=== PATIENT | female | born 1965 | race Two or more races ===

== ENCOUNTER 2017-01-31 13:59 | Emergency (ER) | payer OTHER ==
[2017-01-31] MEDS ORDERED: OXYCODONE/APAP 5/325MG COMBO TABLET PO ONE (14:56)
[2017-01-31] MEDS ORDERED: OXYCODONE/APAP 5/325MG COMBO TABLET ONE (14:57)
[2017-01-31 14:58] VITALS: TEMP 98.9
--- NOTE | 2017-01-31 15:02 | PDOC ---
History of Present Illness - General Chief Complaint: Injury Stated Complaint: FALL Time Seen by Provider: 01/31/17 14:46 History Source: Patient Exam Limitations: No Limitations - History of Present Illness Initial Comments: 01/31/17 15:38 Chief complaint: Slip and fall on slippery floor and [employer] falling onto her left side complaining of left hip and pelvis pain and right knee pain and slight pain to her right wrist and palm History of present illness: Patient is a 51-year-old female with a history of hypertension here today after slipping on slippery floor that was oily and [employer] falling onto her left side patient was unable to get up patient ambulance was called patient reports having left hip and pelvic pain and right anterior posterior knee pain Currently an 8 out of 10 aching in nature. Patient also reports slight right palm and wrist pain that is currently a 3 out of 10. Patient denies head injury. Patient denies any numbness in her arms or legs or back. 01/31/17 15:39 Occurred: reports: just prior to arrival Severity: reports: severe Pain Location: reports: lower extremity (rt. anterior/posterior knee, rt. wrist hand ), pelvis (left hip/pelvis ) Method of Injury: Yes: fall Modifying Factors: improves with: None Loss of Consciousness: no loss of consciousness Associated Symptoms (Fall): trouble walking, other (denies hitting her head ) Past History - Past Medical History Allergies/Adverse Reactions: Allergies Allergy/AdvReac Type Severity Reaction Status Date / Time No Known Drug Allergies Allergy Verified 01/31/17 14:47 Home Medications: Ambulatory Orders Enalapril Maleate [Vasotec] 20 mg PO DAILY 01/31/17 Naproxen [Naprosyn -] 500 mg PO BID PRN #14 tablet 01/31/17 Anemia: No Asthma: No Cancer: No Cardiac Disorders: No CVA: No COPD: No CHF: No Dementia: No Diabetes: No GI Disorders: No Disorders: No HTN: Yes Hypercholesterolemia: No Liver Disease: No Seizures: No Thyroid Disease: No - Surgical History Abdominal Surgery: No Appendectomy: No Cardiac Surgery: No Cholecystectomy: Yes Lung Surgery: No Neurologic Surgery: No Orthopedic Surgery: No - Immunization History Immunization Up to Date: Yes - Psycho/Social/Smoking Cessation Hx Anxiety: No Suicidal Ideation: No Smoking History: Never smoked Have you smoked in the past 12 months: No Number of Cigarettes Smoked Daily: 0 Cigars Per Day: 0 Information on smoking cessation initiated: No Hx Alcohol Use: No Drug/Substance Use Hx: No Substance Use Type: None Hx Substance Use Treatment: No Review of Systems - Review of Systems Able to Perform ROS?: Yes Constitutional: No: Symptoms Reported HEENTM: No: Symptoms Reported Respiratory: No: Symptoms reported Cardiac (ROS): No: Symptoms Reported ABD/GI: No: Symptoms Reported : No: Symptoms Reported Musculoskeletal: Yes: Joint Pain (left hip/pelvis severe rt. anterior/ posterior knee severe , rt. wrist/hand minimal ) Integumentary: No: Symptoms Reported Neurological: No: Symptoms reported *Physical Exam - Vital Signs Last Vital Signs Temp Pulse Resp BP Pulse Ox 98.9 F 84 17 130/70 98 01/31/17 14:49 01/31/17 14:49 01/31/17 14:49 01/31/17 14:49 01/31/17 14:49 - Physical Exam General Appearance: Yes: Appropriately Dressed Neck: negative: Rigidity, Tender lateral, Tender midline Respiratory/Chest: positive: Lungs Clear, Normal Breath Sounds. negative: Chest Tender, Respiratory Distress Cardiovascular: positive: Regular Rhythm, Regular Rate, S1, S2 Vascular Pulses: Dorsalis-Pedis (R): 4+, Doralis-Pedis (L): 4+ Gastrointestinal/Abdominal: positive: Normal Bowel Sounds, Tender (diffuse ), Soft, Tenderness (du). negative: Organomegaly, Distended, Guarding, Rebound, Spleenomegaly Rectal Exam: negative: heme negative stool Musculoskeletal: positive: Decreased Range of Motion (left hip). negative: Normal Inspection, CVA Tenderness, CVA Tenderness (R), Vertebral Tenderness Extremity: positive: Normal Capillary Refill, Normal Inspection (left hip/ pelvis ), Normal Range of Motion, Tender (rt. anterior/posterior knee, minimal rt. wrist/palm ), Other (normal inspection rt. hand, wrist and digits) Integumentary: positive: Normal Color, Other (rt. lateral thigh raised area lateral slight tender approx 4 cm x 5 cm) Neurologic: positive: Fully Oriented, Alert, Normal Response, Respond to painful stimul, Responsive. negative: Numbness, Sensory Deficit (legs, rt. arm , hand and wrist ) ED Treatment Course - RADIOLOGY Radiology Studies Ordered: Category Date Time Status HIP & PELVIS-LEFT [RAD] Stat Radiology 01/31/17 14:56 Ordered KNEE 2 POS-RIGHT [RAD] Stat Radiology 01/31/17 14:56 Ordered Medical Decision Making - Medical Decision Making 01/31/17 15:40 Patient is a 51-year-old female with a history of hypertension here today after slipping on slippery floor that was oily and [employer] falling onto her left side patient was unable to get up patient ambulance was called patient reports having left hip and pelvic pain and right anterior posterior knee pain Currently an 8 out of 10 aching in nature. Patient also reports slight right palm and wrist pain that is currently a 3 out of 10. Patient denies head injury. Patient denies any numbness in her arms or legs or back. Slip and fall rule out fracture of left hip/pelvis r/o bony injury to right knee minimal rt. wrist/palm pain not suspicious for fracture rt. knee pain rt. thigh contusion left hip pain PLAN: percocet 5mg/325mg po now xray left hip/pelvis Problems no sign of fracture or subluxation. no sign of fracture or subluxation h/o c section xray right knee acute pathology if symptoms persist further imaging in orthopedic consult review of help per Dr. Martinez 01/31/17 16:56 pt feeling reports generalized abdominal discomfort and feels slightly nauseous and lightheaded presently after taking Percocet will give patient Zofran 4 mg sublingual now and Maalox 30 ml and reassess. has not eaten since this morning 01/31/17 17:35 feeling much better ate, no abdominal pain presently pt is able to ambualate will discharge to home Naprosyn 500 mg bid prn pain # 14 tab 01/31/17 19:00 01/31/17 19:38 02/02/17 19:45 *DC/Admit/Observation/Transfer Diagnosis at time of Disposition: Hip pain, left, Knee pain, right Fall Qualifiers: Encounter type: initial encounter Qualified Code(s): W19.XXXA - Unspecified fall, initial encounter Contusion of thigh, right Qualifiers: Encounter type: initial encounter Qualified Code(s): S70.11XA - Contusion of right thigh, initial encounter - Discharge Dispostion Disposition: HOME Condition at time of disposition: Stable - Prescriptions Prescriptions: Naproxen [Naprosyn -] 500 mg PO BID PRN #14 tablet PRN Reason: Pain - Referrals Referrals: Alejandro Lang MD [Staff Physician] - - Patient Instructions Additional Instructions: Up with orthopedist as soon as possible for further evaluation Take acetaminophen as needed as to by inventory transcriber for pain until you get her prescription you may apply ice to left hip and right knee and right thigh every 2 hours for 15-20 minutes each time today and tomorrow return to Emergency room if symptoms worsen or any new symptoms develop Any strenuous activities or exercise Voice understanding of discharge instructions and all questions were answered - Post Discharge Activity Work/School Note: Back to Work
[2017-01-31] MEDS ORDERED: ONDANSETRON *ODT* 4 MG TABLET SL ONE (16:52)
[2017-01-31] MEDS ORDERED: MAG HYDROX/AL HYDROX/SIMETH 355 ML ORAL.SUSP PO ONE (16:53)
[2017-01-31] MEDS ORDERED: MAG HYDROX/AL HYDROX/SIMETH 30 ML UNIT-DOSE CUP ONE (17:04)
[2017-01-31] MEDS ORDERED: ONDANSETRON *ODT* 4 MG TABLET ONE (17:04)
[2017-01-31 20:07] VITALS: BP 122/65; PULSE 78
== END 2017-01-31 20:07 | disposition home or self-care (01) ==
LOC: JER 13:59
DX: S70.12XA Contusion of left thigh, initial encounter (principal); I10 Essential (primary) hypertension; W01.0XXA Fall on same level from slipping, tripping and stumbling without subsequent striking against object, initial encounter; Y93.89 Activity, other specified; Y92.512 Supermarket, store or market as the place of occurrence of the external cause; Y99.0 Civilian activity done for income or pay
CPT/HCPCS: 73523-TC; 73560-TC-RT; 99283-25

== ENCOUNTER 2017-02-15 22:38 | Emergency (ER) | payer OTHER ==
[2017-02-15 22:56] VITALS: BP 127/71; PULSE 99; TEMP 98.2; BMI 19.1
--- NOTE | 2017-02-16 00:37 | PDOC ---
History of Present Illness - History of Present Illness Initial Comments: 02/16/17 00:48 The patient is a 52 year old female, with a significant past medical history of hypertension, who presents to the emergency department with abdominal pain, nausea, and vomiting since eating soup at 6pm last night. The patient localizes her pain to the upper abdominal quadrants. The patient states she felt like her blood pressure dropped. She states she became weak and reports nausea and a couple of episodes of vomiting this evening. She denies chest pain, shortness of breath, headache and dizziness. She denies fever, chills, diarrhea and constipation. She denies dysuria, frequency, urgency and hematuria. Allergies: NKDA Past surgical history: cholecystectomy <Elena Oquendo - Last Filed: 02/16/17 00:47> - General History Source: Patient <Paul Coulter - Last Filed: 02/16/17 02:02> - General Chief Complaint: Pain, Acute Stated Complaint: PAIN, ACUTE Time Seen by Provider: 02/16/17 00:34 Past History <Elena Oquendo - Last Filed: 02/16/17 00:47> - Past Medical History Anemia: No Asthma: No Cancer: No Cardiac Disorders: No CVA: No COPD: No CHF: No Dementia: No Diabetes: No GI Disorders: No Disorders: No HTN: Yes Hypercholesterolemia: No Liver Disease: No Seizures: No Thyroid Disease: No - Surgical History Abdominal Surgery: No Appendectomy: No Cardiac Surgery: No Cholecystectomy: Yes Lung Surgery: No Neurologic Surgery: No Orthopedic Surgery: No - Immunization History Immunization Up to Date: Yes - Psycho/Social/Smoking Cessation Hx Anxiety: No Suicidal Ideation: No Smoking History: Never smoked Have you smoked in the past 12 months: No Number of Cigarettes Smoked Daily: 0 Cigars Per Day: 0 Hx Alcohol Use: No Drug/Substance Use Hx: No Substance Use Type: None Hx Substance Use Treatment: No <Paul Coulter - Last Filed: 02/16/17 02:02> - Past Medical History Allergies/Adverse Reactions: Allergies Allergy/AdvReac Type Severity Reaction Status Date / Time No Known Drug Allergies Allergy Verified 02/15/17 22:52 Home Medications: Ambulatory Orders Enalapril Maleate [Vasotec] 20 mg PO DAILY 01/31/17 Loratadine [Claritin] 10 mg PO DAILY #30 tablet 02/16/17 Ondansetron [Zofran *Odt*] 4 mg SL TID #30 od.tablet 02/16/17 Review of Systems - Review of Systems Able to Perform ROS?: Yes Comments:: 02/16/17 00:49 CONSTITUTIONAL: Absent: fever, chills, diaphoresis, generalized weakness, malaise, loss of appetite HEENT: Absent: rhinorrhea, nasal congestion, throat pain, throat swelling, difficulty swallowing, mouth swelling, ear pain, eye pain, visual Changes CARDIOVASCULAR: Absent: chest pain, syncope, palpitations, irregular heart rate, lightheadedness , peripheral edema RESPIRATORY: Absent: cough, shortness of breath, dyspnea with exertion, orthopnea, wheezing, stridor, hemoptysis GASTROINTESTINAL: (+) nausea, vomiting, abdominal pain, Absent: abdominal distension, diarrhea, constipation, melena, hematochezia GENITOURINARY: Absent: dysuria, frequency, urgency, hesitancy, hematuria, flank pain, genital pain MUSCULOSKELETAL: Absent: myalgia, arthralgia, joint swelling SKIN: Absent: rash, itching, pallor HEMATOLOGIC/IMMUNOLOGIC: Absent: easy bleeding, easy bruising, lymphadenopathy, frequent infections ENDOCRINE: Absent: unexplained weight gain, unexplained weight loss, heat intolerance, cold intolerance NEUROLOGIC: Absent: headache, focal weakness or paresthesias, dizziness, unsteady gait, seizure, mental status changes, bladder or bowel incontinence PSYCHIATRIC: Absent: anxiety, depression, suicidal or homicidal ideation, hallucinations. <Elena Oquendo - Last Filed: 02/16/17 00:47> *Physical Exam - Vital Signs Last Vital Signs Temp Pulse Resp BP Pulse Ox 98.2 F 99 H 20 127/71 97 02/15/17 22:52 02/15/17 22:52 02/15/17 22:52 02/15/17 22:52 02/15/17 22:52 - Physical Exam Comments: 02/16/17 00:50 GENERAL: (+) Patient appears to be in moderate distress. The patient appears pale. Awake and alert. HEENT: (+) slightly dry mucous membranes. Normocephalic, atraumatic. PERRLA, EOMI. No conjunctival pallor. Sclera are non-icteric. Oropharynx is clear. NECK: Supple. Full ROM. No JVD. Carotid pulses 2+ and symmetric, without bruits. No thyromegaly. No lymphadenopathy. CARDIOVASCULAR: (+) slightly tachycardic rate and normal rhythm. No murmurs, rubs, or gallops. Distal pulses are 2+ and symmetric. PULMONARY: No evidence of respiratory distress. Lungs clear to auscultation bilaterally. No wheezing, rales or rhonchi. ABDOMINAL: (+) tenderness to palpation at the epigastric region. No rebound or guarding. Not rigid. Soft. Non-distended. No organomegaly. Normoactive bowel sounds. MUSCULOSKELETAL Normal range of motion at all joints. No bony deformities or tenderness. No CVA tenderness. EXTREMITIES: No cyanosis. No clubbing. No edema. No calf tenderness. SKIN: (+) pale appearing. Warm and dry. Normal capillary refill. No rashes. No jaundice. NEUROLOGICAL: Alert, awake, appropriate. Cranial nerves 2-12 intact. Normoreflexic in the upper and lower extremities. Normal speech. Toes are down-going bilaterally. Gait is normal without ataxia. PSYCHIATRIC: Cooperative. Good eye contact. Appropriate mood and affect. <Elena Oquendo - Last Filed: 02/16/17 00:47> - Vital Signs Last Vital Signs Temp Pulse Resp BP Pulse Ox 98.2 F 99 H 20 127/71 97 02/15/17 22:52 02/15/17 22:52 02/15/17 22:52 02/15/17 22:52 02/15/17 22:52 <Paul Coulter - Last Filed: 02/16/17 02:02> ED Treatment Course - LABORATORY CBC & Chemistry Diagram: 02/16/17 00:53 02/16/17 00:53 <Paul Cuolter - Last Filed: 02/16/17 02:02> Medical Decision Making - Medical Decision Making 02/16/17 02:01 Dr. Coulter: The scribe's documentation has been prepared under my direction and personally reviewed by me in its entirery. I confirm that the note above accurately reflects all work, treatment, procedures, and medical decision making performed by me. Pt tolerated po fluids after IVf and IV Zofran without vomiting. Pt will be discharged. <Paul Coulter - Last Filed: 02/16/17 02:02> *DC/Admit/Observation/Transfer - Attestations Scribe Attestion: 02/16/17 00:52 Documentation prepared by Elena Oquendo, acting as medical nurse for Paul Coulter MD <Elena Oquendo - Last Filed: 02/16/17 00:47> - Discharge Dispostion Admit: No <Paul Coulter - Last Filed: 02/16/17 02:02> Diagnosis at time of Disposition: Vomiting Qualifiers: Vomiting Intractability: non-intractable Nausea presence: unspecified Abdominal pain Qualifiers: Abdominal location: epigastric Qualified Code(s): R10.13 - Epigastric pain - Discharge Dispostion Disposition: HOME Condition at time of disposition: Stable - Prescriptions Prescriptions: Loratadine [Claritin] 10 mg PO DAILY #30 tablet Ondansetron [Zofran *Odt*] 4 mg SL TID #30 od.tablet - Patient Instructions Printed Discharge Instructions: DI for Abdominal Pain-Adult, DI for Vomiting - - Adult
[2017-02-16] MEDS ORDERED: FAMOTIDINE 20 MG/50 ML IVPB 20 MG in PREMIX 50 IVPB ONE (00:38)
[2017-02-16] MEDS ORDERED: ONDANSETRON 4 MG/2 ML VIAL IVPUSH STA (00:38)
[2017-02-16] MEDS ORDERED: SODIUM CHLORIDE 1,000 ML IV STA (00:38)
[2017-02-16] MEDS ORDERED: FAMOTIDINE 20 MG/50 ML IVPB 50 ML IVPB ONE (00:56)
[2017-02-16] MEDS ORDERED: ONDANSETRON 4 MG/2 ML VIAL ONE (00:56)
[2017-02-16 01:08] LABS: BASOPHIL 0.5 % (0-2.0); EOSINOPHIL 4.6 % (0-4.5); MCH 30.6 pg (25.7-33.7); MCHC 34.2 g/dl (32.0-36.0); MEAN CELL VOLUME 89.5 fl (80-96); MEAN PLT VOLUME 9.5 fl (7.5-11.1); PLATELET COUNT 286 K/MM3 (134-434); RDW 12.8 % (11.6-15.6); WHITE BLOOD COUNT 9.5 K/mm3 (4.0-10.0)
[2017-02-16 01:19] LABS: INR 1.04 (0.82-1.09); PROTHROMBIN TIME (PATIENT) 11.4 SEC (9.98-11.88)
[2017-02-16 01:35] LABS: ALBUMIN 4.1 g/dl (3.4-5.0); AMYLASE 72 U/L (25-115); ANION GAP 12 (8-16); BILIRUBIN,TOTAL 0.8 mg/dL (0.2-1.0); CALCIUM 9.4 mg/dL (8.5-10.1); CO2 27 mmol/L (21-32); CREATININE 0.8 mg/dL (0.55-1.02); GLUCOSE,RANDOM 98 mg/dL (74-106); SGOT/AST 148 U/L (15-37); SGPT/ALT 72 U/L (12-78); TOT PROT 7.8 g/dl (6.4-8.2)
[2017-02-16 01:36] LABS: ALK PHOS 155 U/L (45-117); TROPONIN I < 0.02 ng/ml (0.00-0.05)
[2017-02-16] MEDS ORDERED: LORATADINE 10 MG TABLET PO ONE (01:57)
[2017-02-16] MEDS ORDERED: LORATADINE 10 MG TABLET ONE (02:01)
--- NOTE | 2017-02-16 17:33 | EKG ---
Test Reason : Blood Pressure : / mmHG Vent. Rate : 082 BPM Atrial Rate : 082 BPM P-R Int : 160 ms QRS Dur : 094 ms QT Int : 364 ms P-R-T Axes : 019 078 049 degrees QTc Int : 425 ms NORMAL SINUS RHYTHM INCOMPLETE RIGHT BUNDLE BRANCH BLOCK NONSPECIFIC T WAVE ABNORMALITY ABNORMAL ECG WHEN COMPARED WITH ECG OF 28-MAY-2016 12:04, NO SIGNIFICANT CHANGE WAS FOUND Confirmed by JUNIOR NEGRO MD ([id number]) on 02/16/2017 5:33:02 PM Referred By: Confirmed By:JUNIOR NEGRO MD
== END 2017-02-16 02:09 | disposition home or self-care (01) ==
LOC: JER 22:38
PROC: 3E033GC Introduction of Other Therapeutic Substance into Peripheral Vein, Percutaneous Approach (ICD-10-PCS; principal; 2017-02-15)
DX: R10.13 Epigastric pain (principal); I10 Essential (primary) hypertension
CPT/HCPCS: 36415; 80053; 82150; 82550; 83690; 83735; 84484; 85025; 85610; 93005; 93010; 96365; 96375; 99284-25

== ENCOUNTER 2017-07-30 12:22 | Emergency (ER) | payer OTHER ==
[2017-07-30 12:38] VITALS: BP 126/75; PULSE 67; TEMP 97.6; BMI 20.7
--- NOTE | 2017-07-30 12:53 | PDOC ---
History of Present Illness - General Chief Complaint: Lightheaded Stated Complaint: HEADACHES Time Seen by Provider: 07/30/17 12:52 History Source: Patient Exam Limitations: Language Barrier (Arabic only) - History of Present Illness Initial Comments: 07/30/17 12:53 Patient is a 52 year old Arabic speaking female with no PMH and a recent back surgery for a herniated disk who developed BERGERON, chills, dizziness and nausea 20 minutes after taking a Percocet this morning. Patient denies fever, shortness of breath, chest pain, itching, and rash. Past History - Past Medical History Allergies/Adverse Reactions: Allergies Allergy/AdvReac Type Severity Reaction Status Date / Time No Known Drug Allergies Allergy Verified 07/30/17 12:33 Home Medications: Ambulatory Orders Enalapril Maleate [Vasotec] 20 mg PO DAILY 01/31/17 Loratadine [Claritin] 10 mg PO DAILY #30 tablet 02/16/17 Ondansetron [Zofran *Odt*] 4 mg SL TID #30 od.tablet 02/16/17 Anemia: No Asthma: No Cancer: No Cardiac Disorders: No CVA: No COPD: No CHF: No Dementia: No Diabetes: No GI Disorders: No Disorders: No HTN: Yes Hypercholesterolemia: No Liver Disease: No Seizures: No Thyroid Disease: No - Surgical History Abdominal Surgery: No Appendectomy: No Cardiac Surgery: No Cholecystectomy: Yes Lung Surgery: No Neurologic Surgery: No Orthopedic Surgery: No - Immunization History Immunization Up to Date: Yes - Psycho/Social/Smoking Cessation Hx Anxiety: No Suicidal Ideation: No Smoking History: Never smoked Have you smoked in the past 12 months: No Number of Cigarettes Smoked Daily: 0 Cigars Per Day: 0 Hx Alcohol Use: No Drug/Substance Use Hx: No Substance Use Type: None Hx Substance Use Treatment: No *Physical Exam - Vital Signs Last Vital Signs Temp Pulse Resp BP Pulse Ox 97.6 F 67 19 126/75 100 07/30/17 12:33 07/30/17 12:33 07/30/17 12:33 07/30/17 12:33 07/30/17 12:33 Medical Decision Making - Medical Decision Making 07/30/17 12:53 52 yo female s/p sgx with epidural with bergeron, chills, dizziness and nausea after taking percocet Plan Basic labs and UA monitor and reassess 07/30/17 14:12 07/30/17 14:14 07/30/17 14:54 Patient missing from room *DC/Admit/Observation/Transfer Diagnosis at time of Disposition: Dizziness - Discharge Dispostion Disposition: ELOPED Condition at time of disposition: Unchanged/Unknown - Referrals Referrals: Andres Galeas [Primary Care Provider] - - Patient Instructions Printed Discharge Instructions: DI for Dizziness-Nonvertigo
--- NOTE | 2017-07-30 13:32 | PDOC ---
Attending Attestation - Resident Resident Name: Loyd Monahan - ED Attending Attestation I have performed the following: I have examined & evaluated the patient, The case was reviewed & discussed with the resident, I agree w/resident's findings & plan, Exceptions are as noted - HPI HPI: 07/30/17 14:04 52yo female with nausea, dizziness, shaver after taking percocet for the first time. currently only mild dizziness - ambulates with a steady gait. - Physicial Exam PE: 07/30/17 14:04 Gen: aaox3, nad heart: +s1s2 reg Lungs: cta b/l abd: soft, nt/nd +bs ext: no c/c/e back: no midline ttp, stepoffs deformities. no redness, no swelling, no warmth, injection site healing. no drainage neuro: cn ii-xii grossly intact, sensation intact, no focal deficits, muscle strength 5/5 - Medical Decision Making 07/30/17 14:05 52yo female with adverse drug reaction after taking percocet for low back pain -non toxic appearance. pt without signs symptoms or epidural abscess. no signs of caude equina -recently told calcium level was high. will repeat labs, check ua. -discussed plan with the patient who agrees with the above. 07/30/17 14:54 went to re-eval the patient. Pt could not be found in the ED. 07/30/17 14:54 pt eloped from the ED. had a steady gait. was nontoxic in appearance. Discharge Disposition - Diagnosis Dizziness - Discharge Dispostion Disposition: ELOPED Condition at time of disposition: Unchanged/Unknown Last Admission D/C Date: 09/04/02
== END 2017-07-30 15:04 | disposition home or self-care (01) ==
LOC: JER 12:22
DX: R42 Dizziness and giddiness (principal)
CPT/HCPCS: 99282-25

== ENCOUNTER 2017-12-17 13:42 | Emergency (ER) | payer OTHER ==
[2017-12-17 14:04] VITALS: BP 114/68; PULSE 87; TEMP 98.3; BMI 20.7
--- NOTE | 2017-12-17 14:33 | PDOC ---
History of Present Illness - General Chief Complaint: Cold Symptoms Stated Complaint: THROAT PAIN Time Seen by Provider: 12/17/17 14:31 History Source: Patient - History of Present Illness Associated Symptoms: reports: headache, muscle aches. denies: chest pain/ soreness, cough, earache, facial pain, fever/chills, nasal drainage, shortness of breath, sore throat, wheezing Past History - Past Medical History Allergies/Adverse Reactions: Allergies Allergy/AdvReac Type Severity Reaction Status Date / Time No Known Drug Allergies Allergy Verified 12/17/17 14:04 Home Medications: Ambulatory Orders NK [No Known Home Medication] 12/17/17 Anemia: No Asthma: No Cancer: No Cardiac Disorders: No CVA: No COPD: No CHF: No Dementia: No Diabetes: No GI Disorders: No Disorders: No HTN: Yes Hypercholesterolemia: No Liver Disease: No Seizures: No Thyroid Disease: No - Surgical History Abdominal Surgery: No Appendectomy: No Cardiac Surgery: No Cholecystectomy: Yes Lung Surgery: No Neurologic Surgery: No Orthopedic Surgery: No - Immunization History Immunization Up to Date: Yes - Suicide/Smoking/Psychosocial Hx Smoking History: Never smoked Have you smoked in the past 12 months: No Number of Cigarettes Smoked Daily: 0 Cigars Per Day: 0 Information on smoking cessation initiated: No Hx Alcohol Use: No Drug/Substance Use Hx: No Substance Use Type: None Hx Substance Use Treatment: No Review of Systems - Review of Systems Constitutional: No: Fever HEENTM: No: Ear Pain, Throat Pain Respiratory: No: Cough, Shortness of Breath ABD/GI: No: Diarrhea, Vomiting *Physical Exam - Vital Signs Last Vital Signs Temp Pulse Resp BP Pulse Ox 98.3 F 87 18 114/68 99 12/17/17 14:02 12/17/17 14:02 12/17/17 14:02 12/17/17 14:02 12/17/17 14:02 - Physical Exam General Appearance: Yes: Appropriately Dressed HEENT: positive: Normal ENT Inspection, Normal Voice. negative: Scleral Icterus (R), Scleral Icterus (L) Neck: positive: Supple. negative: Lymphadenopathy (R), Lymphadenopathy (L) Respiratory/Chest: positive: Lungs Clear, Normal Breath Sounds. negative: Respiratory Distress Cardiovascular: positive: Regular Rate, S1, S2 Integumentary: positive: Dry, Warm Neurologic: positive: Fully Oriented, Alert, Normal Mood/Affect Medical Decision Making - Medical Decision Making 12/17/17 15:09 52 yo F, no sig hx, here w/ body aches w/ BERGERON, cough and subj fever x 2 days. No sore throat, sob, n/v/d. Pt appears ill but stable w/ unremarkable exam otherwise. Appears viral, r/o flu. Pain control in ED 12/17/17 16:00 Flu negative. Patient reports improvement in pain with Motrin. Will discharge with supportive treatment *DC/Admit/Observation/Transfer Diagnosis at time of Disposition: Viral syndrome - Discharge Dispostion Disposition: HOME Condition at time of disposition: Improved - Referrals Referrals: Andres Galeas [Primary Care Provider] - - Patient Instructions Printed Discharge Instructions: DI for Viral Syndrome Additional Instructions: Tu prueba de gripe fue negativa. Es muy probable que tengas un sndrome viral. Descanse, tome muchos lquidos y tome Motrin o Tylenol para el dolor o la fiebre. - Post Discharge Activity Forms/Work/School Notes: Back to Work
[2017-12-17] MEDS ORDERED: ACETAMINOPHEN 325 MG TABLET (FP) ONE (14:50)
[2017-12-17] MEDS ORDERED: ACETAMINOPHEN 325 MG TABLET (FP) PO ONE (15:08)
== END 2017-12-17 16:08 | disposition home or self-care (01) ==
LOC: JERFT 13:42
DX: B34.9 Viral infection, unspecified (principal)
CPT/HCPCS: 87804; 99281-25

== ENCOUNTER 2019-10-18 17:54 | Inpatient (IN) | payer OTHER ==
--- NOTE | 2019-10-18 18:08 | PDOC ---
Rapid Medical Evaluation Time Seen by Provider: 10/18/19 18:05 Medical Evaluation: Allergies Allergy/AdvReac Type Severity Reaction Status Date / Time No Known Drug Allergies Allergy Verified 12/17/17 14:04 10/18/19 18:06 Patient c/o: left sided headache with left pain since this am, no relief with motrin, no tooth d/o, no hx of migraine Patient on brief exam: 156/102, guzman, Patient ordered for: head ct, iv tylenol Patient to proceed to the ED Discharge Disposition - Diagnosis Headache Qualifiers: Headache type: unspecified Headache chronicity pattern: unspecified pattern Intractability: not intractable Qualified Code(s): R51 - Headache CVA (cerebral vascular accident) Qualifiers: CVA mechanism: thrombosis Precerebral and cerebral artery: middle cerebral artery Laterality of affected vessel: right Qualified Code(s): I63.311 - Cerebral infarction due to thrombosis of right middle cerebral artery - Discharge Dispostion Condition at time of disposition: Stable - Referrals - Patient Instructions - Post Discharge Activity
[2019-10-18 18:09] VITALS: BMI 20.7
[2019-10-18] MEDS ORDERED: ACETAMINOPHEN 1000 MG/100 ML VIAL (NON FORMULARY) IVPB ONE (18:09)
--- NOTE | 2019-10-18 19:27 | PDOC ---
History of Present Illness - General Chief Complaint: Headache Stated Complaint: L/EYE PAIN/HEADACHE Time Seen by Provider: 10/18/19 18:05 - History of Present Illness Initial Comments: Rosie Huynh is a 54yo woman with no known medical history who presents reporting a left-sided headache since this morning. She reports that she is having difficulty opening her eyes, especially the left, because of the pain. She denies any pain radiation, nausea/vomiting, focal weakness, numbness/ tingling, vision changes, confusion, chest pain, difficulty breathing, lack of urination, or other associated symptoms. She has no history of frequent headaches. She denies any injury, fevers/chills, recent URI, or other recent illness. Today, Ms Huynh took 200mg ibuprofen at around 4pm when the headache did not resolve on its own, and when it did not improve following the medication she came to the hospital. Past History - Past Medical History Allergies/Adverse Reactions: Allergies Allergy/AdvReac Type Severity Reaction Status Date / Time No Known Drug Allergies Allergy Verified 10/18/19 18:09 Home Medications: Ambulatory Orders NK [No Known Home Medication] 12/17/17 Anemia: No Asthma: No Cancer: No Cardiac Disorders: No CVA: No COPD: No CHF: No Dementia: No Diabetes: No GI Disorders: No Disorders: No HTN: Yes Hypercholesterolemia: No Liver Disease: No Seizures: No Thyroid Disease: No - Surgical History Abdominal Surgery: No Appendectomy: No Cardiac Surgery: No Cholecystectomy: Yes Lung Surgery: No Neurologic Surgery: No Orthopedic Surgery: No - Immunization History Immunization Up to Date: Yes - Psycho Social/Smoking Cessation Hx Smoking History: Never smoked Have you smoked in the past 12 months: No Number of Cigarettes Smoked Daily: 0 Cigars Per Day: 0 Hx Alcohol Use: No Drug/Substance Use Hx: No Substance Use Type: None Hx Substance Use Treatment: No Review of Systems - Review of Systems Comments:: General: No fevers, no chills, no weight or appetite change, no malaise HEENT: No changes in vision, no changes in hearing, no congestion, no sore throat CV: No chest pain, no palpitations, no LE edema Pulm: No SOB, no cough, no wheezing GI: No nausea or vomiting, no change in bowel habits, no melena : No frequency, no urgency, no dysuria Musc: No back pain, no joint swelling, no recent injury Skin: No rash, no lesions, no erythema Endo: No excessive thirst, no heat/cold intolerance Heme: No unusual bruising or bleeding, no swollen glands Neuro: No syncope, no numbness/tingling, no focal weakness Vasc: No claudication Psych: No recent change in mood, no SI or HI *Physical Exam - Vital Signs Last Vital Signs Temp Pulse Resp BP Pulse Ox 98.3 F 78 19 153/106 H 100 10/18/19 18:07 10/18/19 18:07 10/18/19 18:07 10/18/19 18:07 10/18/19 18:07 - Physical Exam General: Comfortable, no acute distress HEENT: PERRL, EOMI, MMM, voice normal, normal neck ROM, no LAD Cards: RRR, no murmur appreciated Pulm: Comfortable on room air, clear to auscultation bilaterally Abd: Soft, nontender, nondistended Ext: Atraumatic. No LE edema. ROM intact. Strength 5/5 and equal bilaterally Vasc: Extremities WWP. Skin: Normal color, no rashes or lesions Neuro: A&Ox3, CN grossly intact, normal speech, motor/sensory grossly intact and symmetric. No focal deficits Psych: Mood appropriate to situation ED Treatment Course - LABORATORY CBC & Chemistry Diagram: 10/18/19 20:15 10/18/19 19:56 - RADIOLOGY Radiology Studies Ordered: Category Date Time Status CHEST PA & LAT [RAD] Stat Radiology 10/18/19 19:11 Ordered Medical Decision Making - Medical Decision Making 10/18/19 19:25 Rosie Huynh is a 54yo woman with no known medical history who presents reporting a left-sided headache since this morning along with pain behind her left eye. She denies any trauma, fever, neurological deficits, vision changes, recent URI, or other current or recent symptoms. - No red flag symptoms - Reports eye pain, but no erythema, drainage, apparent injury, or other eye abnormalities on exam. Pain reported to be "deep" may be related to headache - CT head w/o contrast completed after being seen in E. No acute abnormalities seen - Markedly HTN on arrival with BP 153/106. Will recheck, but if still hypertensive may be HTN urgency v emergency. CBC, CMP, EKG, 12/04/19 21:54 - Labs unremarkable - Headache resolved completely - Discussed CT venogram w/ pt to evaluate for venous sinus thrombosis. Pt agrees - Per radiologist, MRV is currently available and would be a better test. Spoke to MRI, can take pt immediately. Pt taken for MRV 10/18/19 22:18 - Sign out given to Dr Gonzalez for the remainder of her ED care Discussed with Dr Charan Bell PGY2 Discharge - Discharge Information Problems reviewed: Yes Clinical Impression/Diagnosis: Headache - Follow up/Referral Referrals: Melanie Jones [Primary Care Provider] - - Patient Discharge Instructions - Post Discharge Activity
[2019-10-18] MEDS ORDERED: METOCLOPRAMIDE HCL INJECTION 10 MG/2 ML VIAL IVPUSH ONE (19:37)
--- NOTE | 2019-10-18 19:44 | PDOC ---
Attending Attestation - Resident Resident Name: Leticia Bell - ED Attending Attestation I have performed the following: I have examined & evaluated the patient, The case was reviewed & discussed with the resident, I agree w/resident's findings & plan - HPI HPI: 10/18/19 20:34 see resident hpi - Physicial Exam PE: 10/18/19 20:35 agree with resident exam - Medical Decision Making 10/18/19 20:35 54-year-old female with complaints of retro-orbital headache Patient's history of sinus headaches in the past was not given during initial HPI Due to chronic sinusitis and change in headache pattern a CT, venous phase will be obtained to rule out dural venous thrombosis If negative patient will likely be discharged home as she is not ill-appearing Based on clinical presentation lumbar puncture does not appear to be clinically indicated at this time
[2019-10-18] MEDS ORDERED: METOCLOPRAMIDE HCL INJECTION 10 MG/2 ML VIAL ONE (19:57)
[2019-10-18] MEDS ORDERED: ACETAMINOPHEN INJECTION 100 ML IVPB ONE (19:58)
[2019-10-18 20:37] LABS: BASO % 0.6 % (0-2.0); EOS % 6.2 % (0-4.5); HEMATOCRIT 35.5 % (32.4-45.2); LYMPH % 27.5 % (8-40); MCH 30.8 pg (25.7-33.7); MCHC 33.9 g/dl (32.0-36.0); MONO % 7.3 % (3.8-10.2); NEUT % 58.4 % (42.8-82.8); PLATELET COUNT 309 K/MM3 (134-434); RDW 12.7 % (11.6-15.6); WHITE BLOOD COUNT 8.1 K/mm3 (4.0-10.0)
[2019-10-18 20:52] LABS: ALK PHOS 112 U/L (45-117); ANION GAP 6 MMOL/L (8-16); BILIRUBIN,TOTAL 0.2 mg/dL (0.2-1); BLOOD UREA NITROGEN 13.6 mg/dL (7-18); CALCIUM 9.3 mg/dL (8.5-10.1); CHLORIDE 106 mmol/L (98-107); CO2 29 mmol/L (21-32); CREATININE 0.8 mg/dL (0.55-1.3); GLUCOSE,RANDOM 96 mg/dL (74-106); POTASSIUM 4.3 mmol/L (3.5-5.1); SGOT/AST 13 U/L (15-37); SGPT/ALT 20 U/L (13-61); SODIUM 141 mmol/L (136-145); TOT PROT 7.4 g/dl (6.4-8.2)
[2019-10-18 20:56] LABS: INR 0.95 (0.83-1.09); PROTHROMBIN TIME (PATIENT) 11.2 SEC (9.7-13.0)
[2019-10-19] MEDS ORDERED: ASPIRIN 325 MG TABLET PO ONE (00:04)
--- NOTE | 2019-10-19 00:04 | PDOC ---
*Physical Exam - Vital Signs Last Vital Signs Temp Pulse Resp BP Pulse Ox 98.3 F 78 19 153/106 H 100 10/18/19 18:07 10/18/19 18:07 10/18/19 18:07 10/18/19 18:07 10/18/19 18:07 - Physical Exam General Appearance: Yes: Nourished, Appropriately Dressed. No: Apparent Distress HEENT: positive: Normal ENT Inspection, Normal Voice Neck: positive: Supple Respiratory/Chest: positive: Lungs Clear Cardiovascular: positive: Regular Rhythm, Regular Rate, S1, S2 Vascular Pulses: Dorsalis-Pedis (R): 2+, Doralis-Pedis (L): 2+ Gastrointestinal/Abdominal: positive: Soft Rectal Exam: positive: deferred Lymphatic: negative: Adenopathy Musculoskeletal: positive: Normal Inspection. negative: CVA Tenderness Extremity: positive: Normal Capillary Refill, Normal Inspection, Normal Range of Motion Integumentary: positive: Normal Color, Dry, Warm Neurologic: positive: senior production manager II-XII NML intact, Fully Oriented, Alert, Normal Mood/ Affect, Normal Response, Motor Strength 5/5, Respond to painful stimul, Responsive. negative: Abnormal Cranial NS, EOM Palsy, Facial Droop, Numbness, Sensory Deficit, Finger to Nose, Confused, Disoriented, Depressed Affect ED Treatment Course - LABORATORY CBC & Chemistry Diagram: 10/18/19 20:15 10/18/19 19:56 - ADDITIONAL ORDERS Additional order review: Laboratory Results 10/18/19 10/18/19 10/18/19 20:15 20:15 19:56 PT with INR 11.20 INR 0.95 PTT (Actin FS) 32.7 Sodium 141 Potassium 4.3 Chloride 106 Carbon Dioxide 29 Anion Gap 6 L BUN 13.6 Creatinine 0.8 Est GFR (CKD-EPI)AfAm 96.87 Est GFR (CKD-EPI)NonAf 83.58 Random Glucose 96 Calcium 9.3 Total Bilirubin 0.2 AST 13 L ALT 20 Alkaline Phosphatase 112 Creatine Kinase 138 Troponin I < 0.02 Total Protein 7.4 Albumin 4.0 10/18/19 20:15 RBC 3.90 MCV 91.0 MCHC 33.9 RDW 12.7 MPV 9.0 Neutrophils % 58.4 D Lymphocytes % 27.5 D Monocytes % 7.3 Eosinophils % 6.2 H Basophils % 0.6 - Medications Given in the ED: ED Medications Discontinued Medications Generic Name Dose Route Start Last Admin Trade Name Amarilys PRN Reason Stop Dose Admin Acetaminophen 1,000 mg 10/18/19 18:09 10/18/19 20:55 Ofirmev Injection - IVPB 10/18/19 18:10 1,000 mg ONCE ONE Administration Diphenhydramine HCl 25 mg 10/18/19 19:37 10/18/19 20:55 Benadryl Injection - IVPB 10/18/19 19:38 25 mg ONCE ONE Administration Metoclopramide HCl 10 mg 10/18/19 19:37 10/18/19 20:55 Reglan Injection - IVPUSH 10/18/19 19:38 10 mg ONCE ONE Administration Medical Decision Making - Medical Decision Making Patient signed out to me from Dr. Bell pending MRV read and final ED disposition MRV: FINDINGS: 2 punctate foci of restricted diffusion are seen in the right temporal lobe on image 13 and 14 of series 5 corresponding to hypointense signal on ADC. Grossly normal flow related enhancement of the dural venous sinuses. Probable arachnoid granulation noted in the right transverse and sigmoid sinuses. No hemosiderin deposition. No appreciable mass, hydrocephalus, or extra-axial fluid collection. Extensive paranasal sinus disease IMPRESSION: 1. Grossly normal flow related enhancement of the dural venous sinuses. If there is persistent concern, CTV is recommended. 2. 2 punctate foci of restricted diffusion in the right temporal lobe concerning for acute infarct. Plan: Aspirin + admission to stroke floor Discharge - Discharge Information Problems reviewed: Yes Clinical Impression/Diagnosis: Headache Qualifiers: Headache type: unspecified Headache chronicity pattern: unspecified pattern Intractability: not intractable Qualified Code(s): R51 - Headache CVA (cerebral vascular accident) Qualifiers: CVA mechanism: thrombosis Precerebral and cerebral artery: middle cerebral artery Laterality of affected vessel: right Qualified Code(s): I63.311 - Cerebral infarction due to thrombosis of right middle cerebral artery Condition: Stable - Admission Yes - Follow up/Referral - Patient Discharge Instructions - Post Discharge Activity
[2019-10-19] MEDS ORDERED: ASPIRIN 81 MG CHEWABLE TABLETS ONE (00:11)
[2019-10-19] MEDS ORDERED: ACETAMINOPHEN 325 MG TABLET (FP) PO PRN (01:23)
--- NOTE | 2019-10-19 02:08 | PN ---
Teaching Attending Note Name of Resident: Pavithra France ATTENDING PHYSICIAN STATEMENT I saw and evaluated the patient. I reviewed the resident's note and discussed the case with the resident. I agree with the resident's findings and plan as documented. SUBJECTIVE: Patient is a 54 year old woman with a PMH of HTN (not on medications) and Back surgery for herniated disc who presents reporting a left-sided headache since this morning. She reports that she is having difficulty opening her eyes, especially the left, because of the pain. She denies any pain radiation, nausea/ vomiting, focal weakness, numbness/tingling, vision changes, confusion, chest pain, difficulty breathing, lack of urination, or other associated symptoms. She has no history of frequent headaches. She denies any injury, fevers/chills, recent URI, or other recent illness. Today, Ms Huynh took 200mg ibuprofen at around 4pm when the headache did not resolve on its own, and when it did not improve following the medication she came to the hospital. Denies tobacco, alcohol or illicit drug use. No recent travel or sick contacts. OBJECTIVE: Alert Vital Signs Period Temp Pulse Resp BP Sys/Leiva Pulse Ox Last 24 Hr 98.3 F 78 19 153/106 100 HEENT: No Jaundice, eye redness or discharge, PERRLA, EOMI. Normocephalic, atraumatic. External ears are normal and hearing is grossly intact. No nasal discharge. Neck: Supple, nontender. No palpable adenopathy or thyromegaly. No JVD Chest: Good effort. Clear to auscultation and percussion. Heart: Regular. No S3, rub or murmur Abdomen: Not distended, soft, nontender and no HSM. No rebound or guarding. Normal bowel sounds. Ext: Peripheral pulses intact. No leg edema. Skin: Warm and dry. No petechiae, rash or ecchymosis. Neuro: Alert. Oriented x3. CN 2-12 grossly intact. Sensation grossly intact in all four extremities and DTR are symmetric. Psych: Appropriate mood and affect. Good insight. Current Medications Generic Name Dose Route Start Last Admin Trade Name Freq PRN Reason Stop Dose Admin Acetaminophen 650 mg 10/19/19 01:23 Tylenol - PO Q6H PRN FEVER Aspirin 81 mg 10/19/19 10:00 Ecotrin - PO DAILY ZACH Enoxaparin Sodium 40 mg 10/19/19 10:00 Lovenox - SQ DAILY ZACH Rosuvastatin Calcium 20 mg 10/19/19 22:00 Crestor - PO HS ZACH Home Medications Medication Instructions Recorded NK [No Known Home Medication] 12/17/17 Abnormal Lab Results 10/18/19 10/18/19 19:56 20:15 Eosinophils % 6.2 H Anion Gap 6 L AST 13 L ASSESSMENT AND PLAN: 1. CVA ? - Headache is consistent with migraine. No acute intracranial pathology on head CT but shows chronic sinusitis of the ethmoid air cells and sphenoid sinus. MRV showed two punctate foci of restricted diffusion in the right temporal lobe concerning for acute infarct. Patient felt better while in the ER - got Tylenol and Aspirin. Results of carotid doppler pending. EKG shows NSR with IRBBB and nonspecific T wave changes. Will admit to telemetry, get ECHO , fasting lipid profile, speech and swallow evaluation, treat with statin and aspirin, consult Neurology/PT and implement fall precautions. CXR shows hyperinflation and RLL nodule - will refer to pulmonary for nodule follow up. Monitor BP closely to ascertain if she has undiagnosed hypertension. Will continue comprehensive care for all of patients comorbid conditions. 2. Hypertension? - Counseled patient on the injurious effects of uncontrolled hypertension. Nonpharmacologic measures to control hypertension like weight loss , salt restriction and exercise discussed. Importance of adherence to treatment regimen and attainment of normotension emphasized. 3. DVT prophylaxis - Heparin 5000u sq tid. 4. Advance directives - Full code
--- NOTE | 2019-10-19 03:38 | HP ---
CHIEF COMPLAINT: headache PCP: Dr. Melanie Jones HISTORY OF PRESENT ILLNESS: Patient is a 54 year old female with no significant past medical history presented to the ED due to sudden onset severe 10/10 left retro-orbital throbbing pain that started early this morning. Patient reported she was just at home when she suddenly developed the headache as described on the left eye, accompanied by flashes of light on the right eye. She took Ibuprofen which did not provide any relief,and so she came to the ED. She denies any history of frequent headaches, migraines or seizures. She denies any nausea/vomiting, focal weakness, numbness/tingling, vision changes, confusion, ear pain or hearing loss. She denies any recent illness, cough, colds, fevers, chills, dizziness, palpitations, chest pain, SOB, abdominal pain, diarrhea, urinary symptoms. At the ED, patient was given IV Tylenol and ASA which provided relief of the symptoms. Head CT was done, was negative for any acute pathology and showed chronic sinusitis involving ethmoid air cells and sphenoid sinuses. There was concern for venous sinus thrombosis, so an MRI was done. On preliminary read, showed grossly normal flow related enhancement of the dural venous sinuses and 2 punctate foci of restricted diffusion in the R temporal lobe concerning for acute infarct. During initial presentation, patient also presented with elevated blood pressure of 153/106. Repeat BP on admission was 110/64. Recent Travel: denies PAST MEDICAL HISTORY: none PAST SURGICAL HISTORY: none Social History: Smoking:denies Alcohol:denies Drugs: denies Family History Mother - HTN Allergies No Known Drug Allergies Allergy (Verified 10/18/19 18:09) HOME MEDICATIONS: Home Medications Medication Instructions Recorded NK [No Known Home Medication] 12/17/17 REVIEW OF SYSTEMS CONSTITUTIONAL: Absent: fever, chills, diaphoresis, generalized weakness, malaise, loss of appetite, weight change HEENT: Absent: rhinorrhea, nasal congestion, throat pain, throat swelling, difficulty swallowing, mouth swelling, ear pain, eye pain, visual changes CARDIOVASCULAR: Absent: chest pain, syncope, palpitations, irregular heart rate, lightheadedness , peripheral edema RESPIRATORY: Absent: cough, shortness of breath, dyspnea with exertion, orthopnea, wheezing, stridor, hemoptysis GASTROINTESTINAL: Absent: abdominal pain, abdominal distension, nausea, vomiting, diarrhea, constipation, melena, hematochezia GENITOURINARY: Absent: dysuria, frequency, urgency, hesitancy, hematuria, flank pain, genital pain MUSCULOSKELETAL: Absent: myalgia, arthralgia, joint swelling, back pain, neck pain SKIN: Absent: rash, itching, pallor HEMATOLOGIC/IMMUNOLOGIC: Absent: easy bleeding, easy bruising, lymphadenopathy, frequent infections ENDOCRINE: Absent: unexplained weight gain, unexplained weight loss, heat intolerance, cold intolerance NEUROLOGIC: headache Absent: focal weakness or paresthesias, dizziness, unsteady gait, seizure, mental status changes, bladder or bowel incontinence PSYCHIATRIC: Absent: anxiety, depression, suicidal or homicidal ideation, hallucinations. PHYSICAL EXAMINATION Vital Signs - 24 hr 10/18/19 18:07 Temperature 98.3 F Pulse Rate 78 Respiratory 19 Rate Blood Pressure 153/106 H O2 Sat by Pulse 100 Oximetry (%) GENERAL: Awake, alert, and fully oriented, in no acute distress. HEAD: Normal with no signs of trauma. EYES: PERRLA, EOMI, sclera anicteric, conjunctiva clear. EARS, NOSE, THROAT: Moist mucous membranes. NECK: Normal range of motion, supple without lymphadenopathy, JVD, or masses. LUNGS: Breath sounds equal, clear to auscultation bilaterally. HEART: Regular rate and rhythm, normal S1 and S2 without murmur, rub or gallop. ABDOMEN: Soft, nontender, not distended, normoactive bowel sounds. MUSCULOSKELETAL: Normal range of motion at all joints. UPPER EXTREMITIES: 2+ pulses, warm, well-perfused. LOWER EXTREMITIES: 2+ pulses, warm, well-perfused. No peripheral edema. NEUROLOGICAL: Cranial nerves II-XII intact. Normal speech. Normal gait. Sensation intact and motor strength 5/5 on all extremities. DTRs +2. PSYCHIATRIC: Cooperative. Good eye contact. Appropriate mood and affect. SKIN: Warm, dry, normal turgor. Laboratory Results - last 24 hr 10/18/19 10/18/19 10/18/19 19:56 20:15 20:15 WBC 8.1 RBC 3.90 Hgb 12.0 Hct 35.5 MCV 91.0 MCH 30.8 MCHC 33.9 RDW 12.7 Plt Count 309 MPV 9.0 Absolute Neuts (auto) 4.7 Neutrophils % 58.4 D Lymphocytes % 27.5 D Monocytes % 7.3 Eosinophils % 6.2 H Basophils % 0.6 Nucleated RBC % 0 PT with INR INR PTT (Actin FS) 32.7 Sodium 141 Potassium 4.3 Chloride 106 Carbon Dioxide 29 Anion Gap 6 L BUN 13.6 Creatinine 0.8 Est GFR (CKD-EPI)AfAm 96.87 Est GFR (CKD-EPI)NonAf 83.58 Random Glucose 96 Calcium 9.3 Total Bilirubin 0.2 AST 13 L ALT 20 Alkaline Phosphatase 112 Creatine Kinase 138 Troponin I < 0.02 Total Protein 7.4 Albumin 4.0 10/18/19 20:15 WBC RBC Hgb Hct MCV MCH MCHC RDW Plt Count MPV Absolute Neuts (auto) Neutrophils % Lymphocytes % Monocytes % Eosinophils % Basophils % Nucleated RBC % PT with INR 11.20 INR 0.95 PTT (Actin FS) Sodium Potassium Chloride Carbon Dioxide Anion Gap BUN Creatinine Est GFR (CKD-EPI)AfAm Est GFR (CKD-EPI)NonAf Random Glucose Calcium Total Bilirubin AST ALT Alkaline Phosphatase Creatine Kinase Troponin I Total Protein Albumin ASSESSMENT/PLAN: Patient is a 54 year old female with no significant past medical history presented to the ED due to sudden onset severe 10/10 left retro-orbital throbbing pain that started early this morning. #Headache -likely 2/2 migraine headache -there was concern for R temporal lobe infarct as seen on MRI, but does not correlate with patient's symptoms -will order carotid doppler and echo to further evaluate -tele monitoring -will start patient on ASA and Crestor -lipid profile ordered -Physical therapy -speech and swallow -Neurology (Dr. Restrepo) consulted. -will give Tylenol as needed for pain right now as patient responded well, and await further neuro recs. #RLL nodule -CXR showed 4mm nodule on RLL -would need follow up with pulm as outpatient for continued monitoring #FEN -Not on any standing fluids -Electrolytes wnl, routine bmp monitoring -Patient passed bedside swallow -will start on low salt, low fat diet #Prophylaxis -Lovenox 40mg daily #Disposition -full code -Tele Visit type - Emergency Visit Emergency Visit: Yes ED Registration Date: 10/19/19 Care time: The patient presented to the Emergency Department on the above date and was hospitalized for further evaluation of their emergent condition. - New Patient This patient is new to me today: Yes Date on this admission: 10/19/19 - Critical Care Critical Care patient: No ATTENDING PHYSICIAN STATEMENT I saw and evaluated the patient. I reviewed the resident's note and discussed the case with the resident. I agree with the resident's findings and plan as documented. SUBJECTIVE: OBJECTIVE: ASSESSMENT AND PLAN:
[2019-10-19 07:42] LABS: ALBUMIN 3.8 g/dl (3.4-5.0); BILIRUBIN,TOTAL 0.2 mg/dL (0.2-1); BLOOD UREA NITROGEN 12.6 mg/dL (7-18); CREATININE 0.8 mg/dL (0.55-1.3); MAGNESIUM 2.1 mg/dL (1.8-2.4); PHOSPHOROUS 4.8 mg/dL (2.5-4.9); POTASSIUM 4.1 mmol/L (3.5-5.1); TOT PROT 7.2 g/dl (6.4-8.2)
[2019-10-19 08:25] LABS: PH,URINE 5.5 (5.0-8.0); URINE APPEARANCE CLEAR; URINE BILIRUBIN NEGATIVE (NEGATIVE); URINE COLOR YELLOW; URINE GLUCOSE (UA) NEGATIVE (NEGATIVE); URINE KETONE NEGATIVE (NEGATIVE); URINE LEUK ESTERASE NEGATIVE (NEGATIVE); URINE NITRITE NEGATIVE (NEGATIVE); URINE PROTEIN NEGATIVE (NEGATIVE); URINE UROBILINOGEN 0.2 mg/dL (0.2-1.0)
[2019-10-19] MEDS ORDERED: ENOXAPARIN NA (PORCINE) 40 MG/0.4 ML DISP.SYRIN SQ ONE (08:48)
[2019-10-19] MEDS ORDERED: ASPIRIN COATED 81 MG TABLET.EC ONE (08:48)
[2019-10-19] MEDS: ENOXAPARIN NA (PORCINE) 40 MG/0.4 ML DISP.SYRIN SQ SCH (09:15)
[2019-10-19] MEDS: ASPIRIN COATED 81 MG TABLET.EC PO SCH (09:15)
--- NOTE | 2019-10-19 10:43 | EKG ---
Test Reason : Blood Pressure : / mmHG Vent. Rate : 067 BPM Atrial Rate : 067 BPM P-R Int : 148 ms QRS Dur : 096 ms QT Int : 402 ms P-R-T Axes : 005 059 056 degrees QTc Int : 424 ms NORMAL SINUS RHYTHM INCOMPLETE RIGHT BUNDLE BRANCH BLOCK NONSPECIFIC T WAVE ABNORMALITY ABNORMAL ECG WHEN COMPARED WITH ECG OF 16-FEB-2017 01:02, NONSPECIFIC T WAVE ABNORMALITY NO LONGER EVIDENT IN LATERAL LEADS Confirmed by JUWAN BROCK, PHILLIP ([id number]) on 10/19/2019 10:42:54 AM Referred By: Confirmed By:PHILLIP ECHEVERRIA MD
--- NOTE | 2019-10-19 10:56 | CONSULT ---
Admitting History and Physical - Primary Care Physician PCP: Shar Sevilla - Admission History of Present Illness: Patient is a 54 year old female with no significant past medical history presented to the ED due to sudden onset severe 10/10 left retro-orbital throbbing pain History Source: Patient Limitations to Obtaining History: No Limitations - Past Medical History Cardiovascular: Yes: HTN ...LMP: 04/27/16 - Past Surgical History Past Surgical History: Yes: Cholecystectomy, Tonsillectomy - Smoking History Smoking history: Never smoked Have you smoked in the past 12 months: No Aproximately how many cigarettes per day: 0 - Alcohol/Substance Use Hx Alcohol Use: No History of Substance Use: reports: None - Social History ADL: Independent History of Recent Travel: No History - Admission Reason For Visit: CEREBROVASCULAR ACCIDENT (CVA) - Diagnostics X-ray: Report Reviewed (CXR shows hyperinflation and RLL nodule) MRI: Report Reviewed ( MRI- two punctate foci of restricted diffusion in the right temporal lobe concerning for acute infarct) - General Mental Status: Alert and Oriented, Awake and Alert, Able to Follow Commands Attention: Intact Ability to Follow Directions: Excellent Head/Neck Control: WFL - Hearing Hearing: Normal, Functional Speech Evaluation - Communication Primary Language: SURINAMESE Communication: Yes: Within Normal Limits Oral Expression Ability: Yes: No Impairment - Speech Production Able to Make Needs Known: Yes: WNL Intelligibility: Yes: WNL - Speech Characteristics Voice Loudness: Normal Voice Pitch: Yes: Normal Voice Phonatory-based Quality: Yes: Normal Speech Pattern: Normal Speech Clarity: < 100% Nasal Resonance: Normal Articulation: Yes: Precise Dysfluency: Yes: Tonic - Language/Auditory Comprehension Follows: Yes: 2 Stage Simple Commands - Language/Verbal Expression Able to Respond to Simple Queries: Yes: WNL Able to Communicate Wants and Needs: Yes: WNL Functional Communication Status: Yes: WNL Attention: Yes: Intact - 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 Memory: Yes: WNL Short Term Memory: Yes: WNL - Swallow Evaluation/Bedside Assessment Current Nutritional Intake: Regular, Thin Liquids Oral Secretions: Yes: WFL Dentition: Yes: Adequate Facial Symmetry at Rest: Symmetrical Facial Symmetry on Retraction: Symmetrical Facial Movement: Controlled Sensation: Normal Pucker Lips: Normal Smile: Normal Lingual Movement: Normal, Symmetric Lingual Speed of Movement: Normal Lingual Movement Strgth Against Opposition: Normal Lingual Movement Characteristics: Normal Velopharyngeal Movement: Normal Laryngeal Elevation: WFL Laryngeal Movement: Able to Palpate Rate of Intake: WFL Bolus Size: WFL Labial Seal: WFL Chewing: WFL Oral Prep Time: WFL A-P Transit: WFL Pocketing: None Coughing/Throat Clear: No (3 oz water) Change in Voice: No Recommendations - Speech Evaluation, Impression/Plan Impression: Speech, swallow, language, cognition intact. Reports left face/head/ behind eye pain and right eye twitches. Tolerating diet - Dysphagia Impressions/Plan Swallowing Skills: WFL Dysphagia Impressions: No Impairment *Silent aspiration: cannot be R/O at bedside Recommendations: Neuro Consult (pending) - Recommendations Diet Consistency: Regular Medication Administration: Whole with water Liquids: Thin Liquids
--- NOTE | 2019-10-19 11:16 | ECHO ---
Name: KARIN UP Exam:Adult Echocardiogram Study Date: 10/19/2019 08:11 AM Age: 54 yrs Reason For Study: CVA Height: 65 in Weight: 125 lb BSA: 1.6 m2 MMode/2D Measurements & Calculations IVSd: 1.2 cm Ao root diam: 2.9 cm LVIDd: 3.4 cm LA dimension: 2.4 cm LVIDs: 2.1 cm ACS: 2.0 cm LVPWd: 1.3 cm EDV(Teich): 45.9 ml LVOT diam: 2.0 cm ESV(Teich): 15.0 ml RV S Adan: 13.0 cm/sec Doppler Measurements & Calculations MV E max adan: 76.0 cm/sec Ao V2 max: 144.5 cm/sec MV A max adan: 80.5 cm/sec Ao max P.3 mmHg MV E/A: 0.94 MV dec time: 0.24 sec COLLIN(V,D): 3.1 cm2 LV V1 max P.1 mmHg MR max adan: 433.4 cm/sec LV V1 mean P.0 mmHg MR max P.2 mmHg LV V1 max: 142.5 cm/sec LV V1 mean: 93.1 cm/sec LV V1 VTI: 32.1 cm SV(LVOT): 100.0 ml TR max adan: 217.9 cm/sec TR max P.3 mmHg PA V2 max: 59.2 cm/sec Med Peak E' Adan: 9.4 cm/sec PA max P.4 mmHg Med E/e': 8.1 Lat Peak E' Adan: 8.8 cm/sec Lat E/e': 8.7 Procedure A complete two-dimensional transthoracic echocardiogram was performed (2D, M-mode, Doppler and color flow Doppler). Left Ventricle The left ventricular size, thickness and function are normal. The left ventricular ejection fraction is normal. Ejection Fraction = 60-65%. The left ventricular wall motion is normal. Right Ventricle The right ventricle is normal in size and function. Atria Normal left and right atrial size and function. Mitral Valve There is trace mitral regurgitation. Tricuspid Valve No tricuspid regurgitation. There was insufficient TR detected to calculate RV systolic pressure. Aortic Valve The aortic valve is trileaflet. No hemodynamically significant valvular aortic stenosis. No aortic regurgitation is present. Pulmonic Valve There is no pulmonic valvular regurgitation. Great Vessels The aortic root is normal size. Pericardium/Pleura There is no pericardial effusion. Interpretation Summary The left ventricular size, thickness and function are normal The right ventricle is normal in size and function. There is trace mitral regurgitation. MD Leodan Wheeler 10/19/2019 11:16 AM
--- NOTE | 2019-10-19 15:57 | PN ---
Teaching Attending Note Name of Resident: Anabella York ATTENDING PHYSICIAN STATEMENT I saw and evaluated the patient. I reviewed the resident's note and discussed the case with the resident. I agree with the resident's findings and plan as documented. SUBJECTIVE: Patient is feeling better , no further headache as per patient, translation is done by the student who is fluent in sol[place] islander. As per who is at bedside states that the patient wakes up around 5 am every morning and starts cleaning the house. OBJECTIVE: Vital Signs Temperature 98.5 F 10/19/19 14:00 Pulse Rate 74 10/19/19 14:00 Respiratory Rate 20 10/19/19 14:00 Blood Pressure 107/72 10/19/19 14:00 O2 Sat by Pulse Oximetry (%) 97 10/19/19 10:21 GENERAL: The patient is awake, alert, and fully oriented, in no acute distress. HEAD: Normal with no signs of trauma. EYES: PERRL, extraocular movements intact, sclera anicteric, conjunctiva clear. ENT: Ears normal, oropharynx clear without exudates, moist mucous membranes. NECK: Trachea midline, full range of motion, supple. mild neck tenderness on palpation at the trigger points. LUNGS: Breath sounds equal, clear to auscultation bilaterally, no wheezes, no crackles, no accessory muscle use. HEART: Regular rate and rhythm, S1, S2 without murmur, rub or gallop. ABDOMEN: Soft, nontender, nondistended, normoactive bowel sounds, no guarding, no rebound, no hepatosplenomegaly, no masses. EXTREMITIES: 2+ pulses, warm, well-perfused, no edema. NEUROLOGICAL: Cranial nerves II through XII grossly intact. Normal speech, gait not observed. PSYCH: Normal mood, normal affect. SKIN: Warm, dry, normal turgor, no rashes or lesions noted CBCD WBC 8.1 K/mm3 (4.0-10.0) 10/18/19 20:15 RBC 3.90 M/mm3 (3.60-5.2) 10/18/19 20:15 Hgb 12.0 GM/dL (10.7-15.3) 10/18/19 20:15 Hct 35.5 % (32.4-45.2) 10/18/19 20:15 MCV 91.0 fl (80-96) 10/18/19 20:15 MCHC 33.9 g/dl (32.0-36.0) 10/18/19 20:15 RDW 12.7 % (11.6-15.6) 10/18/19 20:15 Plt Count 309 K/MM3 (134-434) 10/18/19 20:15 MPV 9.0 fl (7.5-11.1) 10/18/19 20:15 CMP Sodium 142 mmol/L (136-145) 10/19/19 05:45 Potassium 4.1 mmol/L (3.5-5.1) 10/19/19 05:45 Chloride 107 mmol/L (98-107) 10/19/19 05:45 Carbon Dioxide 29 mmol/L (21-32) 10/19/19 05:45 Anion Gap 6 MMOL/L (8-16) L 10/19/19 05:45 BUN 12.6 mg/dL (7-18) 10/19/19 05:45 Creatinine 0.8 mg/dL (0.55-1.3) 10/19/19 05:45 Random Glucose 84 mg/dL (74-106) 10/19/19 05:45 Calcium 9.0 mg/dL (8.5-10.1) 10/19/19 05:45 Total Bilirubin 0.2 mg/dL (0.2-1) 10/19/19 05:45 AST 11 U/L (15-37) L 10/19/19 05:45 ALT 18 U/L (13-61) 10/19/19 05:45 Alkaline Phosphatase 109 U/L (45-117) 10/19/19 05:45 Total Protein 7.2 g/dl (6.4-8.2) 10/19/19 05:45 Albumin 3.8 g/dl (3.4-5.0) 10/19/19 05:45 CARDIAC ENZYMES Creatine Kinase 138 U/L (26-192) 10/18/19 19:56 Troponin I < 0.02 ng/ml (0.00-0.05) 10/18/19 19:56 Current Medications Generic Name Dose Route Start Last Admin Trade Name Freq PRN Reason Stop Dose Admin Acetaminophen 650 mg 10/19/19 01:23 Tylenol - PO Q6H PRN FEVER Aspirin 81 mg 10/19/19 10:00 10/19/19 09:15 Ecotrin - PO 81 mg DAILY ZACH Administration Enoxaparin Sodium 40 mg 10/19/19 10:00 10/19/19 09:15 Lovenox - SQ 40 mg DAILY ZACH Administration Rosuvastatin Calcium 20 mg 10/19/19 22:00 Crestor - PO HS ZACH Home Medications Medication Instructions Recorded NK [No Known Home Medication] 12/17/17 Carotid doppler: negative MRI: possible cortical infarcts, discussed with radiologists , most likely artifact and possible due to migraine headache and should repeat the mri in a week period. ASSESSMENT AND PLAN: Patient is a 54 year old female with no significant past medical history presented to the ED due to sudden onset severe 10/10 left retro-orbital throbbing pain that started early this morning. #Headache most likely due to neck tenderness, discussed with the patient the use of pillow and MRI result as above and carotid as above -Neurology (Dr. Restrepo) consulted. Once cleared by neuro , we can discharge the patient. #RLL nodule: CXR showed 4mm nodule on RLL, follow up with the pulm as an outpatient and repeat for continued monitoring #Prophylaxis: Lovenox 40mg daily
--- NOTE | 2019-10-19 17:37 | PN ---
Physical Exam: SUBJECTIVE: Patient seen and examined. She denies headache and blurry vision currently. She reports right side upper eyelid has been intermittently twitching over the last couple weeks. OBJECTIVE: Vital Signs Period Temp Pulse Resp BP Sys/Leiva Pulse Ox Last 24 Hr 97.5 F-98.5 F 68-78 18-20 102-153/59-106 97-100 GENERAL: The patient is awake, alert, and fully oriented, in no acute distress. HEAD: Normal with no signs of trauma. EYES: PERRL, extraocular movements intact, conjunctiva clear. No ptosis. ENT: Ears normal, nares patent, moist mucous membranes. NECK: Trachea midline, full range of motion LUNGS: Clear to auscultation bilaterally, no wheezes HEART: Regular rate and rhythm, no murmur ABDOMEN: Soft, nontender, nondistended, normoactive bowel sounds EXTREMITIES: Warm, well-perfused, no edema. NEUROLOGICAL: Cranial nerves II through XII are grossly intact. Extremities 5/5 strength. Normal speech. PSYCH: Normal mood, normal affect. SKIN: Warm, dry, normal turgor Laboratory Results - last 24 hr 10/18/19 10/18/19 10/18/19 19:56 20:15 20:15 WBC 8.1 RBC 3.90 Hgb 12.0 Hct 35.5 MCV 91.0 MCH 30.8 MCHC 33.9 RDW 12.7 Plt Count 309 MPV 9.0 Absolute Neuts (auto) 4.7 Neutrophils % 58.4 D Lymphocytes % 27.5 D Monocytes % 7.3 Eosinophils % 6.2 H Basophils % 0.6 Nucleated RBC % 0 ESR PT with INR INR PTT (Actin FS) 32.7 Sodium 141 Potassium 4.3 Chloride 106 Carbon Dioxide 29 Anion Gap 6 L BUN 13.6 Creatinine 0.8 Est GFR (CKD-EPI)AfAm 96.87 Est GFR (CKD-EPI)NonAf 83.58 Random Glucose 96 Hemoglobin A1c % Calcium 9.3 Phosphorus Magnesium Total Bilirubin 0.2 AST 13 L ALT 20 Alkaline Phosphatase 112 Creatine Kinase 138 Troponin I < 0.02 Total Protein 7.4 Albumin 4.0 TSH Urine Color Urine Appearance Urine pH Ur Specific [place] Urine Protein Urine Glucose (UA) Urine Ketones Urine Blood Urine Nitrite Urine Bilirubin Urine Urobilinogen Ur Leukocyte Esterase 10/18/19 10/19/19 10/19/19 20:15 05:45 05:45 WBC RBC Hgb Hct MCV MCH MCHC RDW Plt Count MPV Absolute Neuts (auto) Neutrophils % Lymphocytes % Monocytes % Eosinophils % Basophils % Nucleated RBC % ESR 19 PT with INR 11.20 INR 0.95 PTT (Actin FS) Sodium 142 Potassium 4.1 Chloride 107 Carbon Dioxide 29 Anion Gap 6 L BUN 12.6 Creatinine 0.8 Est GFR (CKD-EPI)AfAm 96.87 Est GFR (CKD-EPI)NonAf 83.58 Random Glucose 84 Hemoglobin A1c % Calcium 9.0 Phosphorus 4.8 Magnesium 2.1 Total Bilirubin 0.2 AST 11 L ALT 18 Alkaline Phosphatase 109 Creatine Kinase Troponin I Total Protein 7.2 Albumin 3.8 TSH 3.22 Urine Color Urine Appearance Urine pH Ur Specific [place] Urine Protein Urine Glucose (UA) Urine Ketones Urine Blood Urine Nitrite Urine Bilirubin Urine Urobilinogen Ur Leukocyte Esterase 10/19/19 10/19/19 05:45 07:45 WBC RBC Hgb Hct MCV MCH MCHC RDW Plt Count MPV Absolute Neuts (auto) Neutrophils % Lymphocytes % Monocytes % Eosinophils % Basophils % Nucleated RBC % ESR PT with INR INR PTT (Actin FS) Sodium Potassium Chloride Carbon Dioxide Anion Gap BUN Creatinine Est GFR (CKD-EPI)AfAm Est GFR (CKD-EPI)NonAf Random Glucose Hemoglobin A1c % 5.5 Calcium Phosphorus Magnesium Total Bilirubin AST ALT Alkaline Phosphatase Creatine Kinase Troponin I Total Protein Albumin TSH Urine Color Yellow Urine Appearance Clear Urine pH 5.5 Ur Specific [place] 1.014 Urine Protein Negative Urine Glucose (UA) Negative Urine Ketones Negative Urine Blood Negative Urine Nitrite Negative Urine Bilirubin Negative Urine Urobilinogen 0.2 Ur Leukocyte Esterase Negative Active Medications Generic Name Dose Route Start Last Admin Trade Name Freq PRN Reason Stop Dose Admin Acetaminophen 650 mg 10/19/19 01:23 Tylenol - PO Q6H PRN FEVER Aspirin 81 mg 10/19/19 10:00 10/19/19 09:15 Ecotrin - PO 81 mg DAILY ZACH Administration Enoxaparin Sodium 40 mg 10/19/19 10:00 10/19/19 09:15 Lovenox - SQ 40 mg DAILY ZACH Administration Rosuvastatin Calcium 20 mg 10/19/19 22:00 Crestor - PO HS [facility] ASSESSMENT/PLAN: Ms. Huynh is a 54y/o female with no PMH who presents with retro-orbital headache and blurry vision. It improved with Tylenol. #headache migraine vs cluster vs tension -MRI showed area of possible cortical infarct (can be seen with migraine) vs artifact- will need repeat MRI in about a week -carotid doppler negative -start rosuvastatin and ASA until infarct r/o -lipid panel #RLL lung nodule -f/u out pt #DVT Ppx Lovenox FEN PO fluids monitor labs regular diet Visit type - Emergency Visit Emergency Visit: Yes ED Registration Date: 10/19/19 Care time: The patient presented to the Emergency Department on the above date and was hospitalized for further evaluation of their emergent condition. - New Patient This patient is new to me today: Yes Date on this admission: 10/19/19 - Critical Care Critical Care patient: No - Discharge Referral Referred to [facility] No ATTENDING PHYSICIAN STATEMENT I saw and evaluated the patient. I reviewed the resident's note and discussed the case with the resident. I agree with the resident's findings and plan as documented. SUBJECTIVE: OBJECTIVE: ASSESSMENT AND PLAN:
--- NOTE | 2019-10-19 21:58 | CONSULT ---
Consult - text type - Consultation Consultation Note: NEUROLOGY CONSULTATION is greatly appreciated: Events reviewed and discussed with Dr. Carrion. Patient examined with her daughter at the bedside who aides in translation. This 54 yo RH mother of three has no significant PMH. She has had approximately 2 headaches/ month since age 17, not associated with menses and with no precipitating environmental factors. Can be present in the morning upon awakening. During the day, they occur without warning over the left occipital region and develop into left hemucranial throbbing headache especially localized behind the right eye. No nausea. ++ photophobia and phonophobia. 3 weeks ago she experience flashing lights in the right visual redman for approx. 10 mins associated with a mild left sided headache. + FH of headaches in her mother. Admitted after a particularly severe Headache unresponsive to ibuprofen. CT and MRI of brain (reviewed): Normal GOKUL: BP's 110/70. No bruits. Cor Reg. NEURO: MS/Speech: Normal CN II-XII: Normal Motor: No drift or tremor. Normal strength, tone, bulk and reflexes. Toes downgoing. Coord: No FTN dystaxia Sensory: Normal. Romberg neg. gait: Normal IMP: Normal Neurological Exam Migraine headaches Suggest: Nadolol 20 mg PO qd for migraine prophylaxis Sumatriptan 50 mg PO for breakthrough headaches. Neurology f/u as outpatient. Thank you very much, Jabier Restrepo MD
[2019-10-19] MEDS ORDERED: ROSUVASTATIN CA 20 MG TABLET (FP) PO SCH (22:00)
[2019-10-19] MEDS ORDERED: SIMETHICONE 80 MG TAB.CHEW (FP) PO PRN (22:03)
[2019-10-20 07:29] LABS: CHOLESTEROL 197 mg/dL (50-200); HDL CHOLESTEROL 53 mg/dL (40-60); LDL CHOLESTEROL (ONLY SJRH) 118 mg/dL (5-100); TRIGLYCERIDES 144 mg/dL (0-150)
[2019-10-20] MEDS ORDERED: SODIUM CHLORIDE 500 ML IV STA (08:14)
[2019-10-20] MEDS: ASPIRIN COATED 81 MG TABLET.EC PO SCH (09:26)
[2019-10-20] MEDS: ENOXAPARIN NA (PORCINE) 40 MG/0.4 ML DISP.SYRIN SQ SCH (09:26)
[2019-10-20 10:57] VITALS: BP 106/62; PULSE 68; TEMP 98
--- NOTE | 2019-10-20 13:19 | DS ---
Physical Exam: SUBJECTIVE: Patient seen and examined. She reports she has not had a headache since yesterday morning. She denies dizziness, chest pain, abdominal pain, nausea, or vomiting. OBJECTIVE: Vital Signs Period Temp Pulse Resp BP Sys/Leiva Pulse Ox Last 24 Hr 97.6 F-98.9 F 66-74 18-20 90-107/62-72 99-99 PHYSICAL EXAM GENERAL: The patient is awake, alert, and fully oriented, in no acute distress. HEAD: Normal with no signs of trauma. EYES: PERRL, extraocular movements intact, conjunctiva clear. ENT: Ears normal, nares patent, moist mucous membranes. NECK: Trachea midline, hypertonic muscles LUNGS: Clear to auscultation bilaterally, no wheezes HEART: Regular rate and rhythm, no murmur ABDOMEN: Soft, nontender, nondistended, normoactive bowel sounds EXTREMITIES: Warm, well-perfused, no edema. NEUROLOGICAL: Cranial nerves II through XII are grossly intact. Normal speech. PSYCH: Normal mood, normal affect. SKIN: Warm, dry, normal turgor LABS Laboratory Results - last 24 hr 10/20/19 05:55 Triglycerides 144 Cholesterol 197 Total LDL Cholesterol 118 H HDL Cholesterol 53 HOSPITAL COURSE: Ms. Huynh is a 54y/o female with no PMH who presented with right side retro- orbital headache and blurry vision. It resolved with Tylenol. MRI showed possible artifact vs less likely cortical infarct and carotid doppler was negative. No neurological exam findings noted. She was noted to have hypertonic neck muscles. She was instructed to have repeat imaging done in the next 1-2 weeks. She was given prescriptions for magnesium supplementation and Imitrex. LDL was elevated. She was instructed to make dietary changes and follow up with primary care. Date of Admission:10/19/19 Date of Discharge: 10/20/19 Minutes to complete discharge: 35 Discharge Summary Problems reviewed: Yes Reason For Visit: CEREBROVASCULAR ACCIDENT (CVA) Condition: Stable - Instructions Diet, Activity, Other Instructions: YOUR VISIT: You were admitted to the hospital for headache. your headache improved. MEDICATIONS: Start magnesium daily to prevent migraines. If you get a migraine, take sumatriptan 50mg as soon as symptoms start. please have diet modification , avoid fatty food, fried food, lean meat , increase vegetable intake. Follow [place] diet. FOLLOW UP: Dr. Jones, primary care, in one week after discharge. You need to have a follow up MRI in 2 weeks to make sure that you did not have stroke, and your MRI is back to normal. Dr. Restrepo, neurology, in one week after discharge. OTHER INSTRUCTIONS: Return to the emergency room or call 911 if you have a headache that does not improve with sumatriptan or Tylenol, blurry vision, dizziness, chest pain, difficulty breathing, vomiting, or leg pain. Referrals: Jabier Restrepo MD [Staff Physician] - 1 Week Melanie Jones [Primary Care Provider] - Disposition: HOME - Home Medications Comprehensive Discharge Medication List: Ambulatory Orders Magnesium Glycinate [Mag Glycinate] 100 mg PO DAILY #14 tablet 10/20/19 Sumatriptan Succinate [Imitrex -] 50 mg PO PRN PRN #25 tablet 10/20/19 This patient is new to me today: No Emergency Visit: Yes ED Registration Date: 10/19/19 Care time: The patient presented to the Emergency Department on the above date and was hospitalized for further evaluation of their emergent condition. Critical Care patient: No - Discharge Referral Referred to [facility] No ATTENDING PHYSICIAN STATEMENT I saw and evaluated the patient. I reviewed the resident's note and discussed the case with the resident. I agree with the resident's findings and plan as documented. SUBJECTIVE: OBJECTIVE: ASSESSMENT AND PLAN:
--- NOTE | 2019-10-20 19:24 | PN ---
Teaching Attending Note Name of Resident: Anabella York ATTENDING PHYSICIAN STATEMENT I saw and evaluated the patient. I reviewed the resident's note and discussed the case with the resident. I agree with the resident's findings and plan as documented. SUBJECTIVE: Vital Signs Temperature 98 F 10/20/19 10:00 Pulse Rate 68 10/20/19 10:00 Respiratory Rate 18 10/20/19 10:00 Blood Pressure 106/62 10/20/19 10:00 O2 Sat by Pulse Oximetry (%) 99 10/20/19 09:00 GENERAL: The patient is awake, alert, and fully oriented, in no acute distress. HEAD: Normal with no signs of trauma. EYES: PERRL, extraocular movements intact, sclera anicteric, conjunctiva clear. ENT: Ears normal, oropharynx clear without exudates, moist mucous membranes. NECK: Trachea midline, full range of motion, supple. mild neck tenderness on palpation at the trigger points. LUNGS: Breath sounds equal, clear to auscultation bilaterally, no wheezes, no crackles, no accessory muscle use. HEART: Regular rate and rhythm, S1, S2 without murmur, rub or gallop. ABDOMEN: Soft, nontender, nondistended, normoactive bowel sounds, no guarding, no rebound, no hepatosplenomegaly, no masses. EXTREMITIES: 2+ pulses, warm, well-perfused, no edema. NEUROLOGICAL: Cranial nerves II through XII grossly intact. Normal speech, gait not observed. PSYCH: Normal mood, normal affect. SKIN: Warm, dry, normal turgor, no rashes or lesions noted CBCD WBC 8.1 K/mm3 (4.0-10.0) 10/18/19 20:15 RBC 3.90 M/mm3 (3.60-5.2) 10/18/19 20:15 Hgb 12.0 GM/dL (10.7-15.3) 10/18/19 20:15 Hct 35.5 % (32.4-45.2) 10/18/19 20:15 MCV 91.0 fl (80-96) 10/18/19 20:15 MCHC 33.9 g/dl (32.0-36.0) 10/18/19 20:15 RDW 12.7 % (11.6-15.6) 10/18/19 20:15 Plt Count 309 K/MM3 (134-434) 10/18/19 20:15 MPV 9.0 fl (7.5-11.1) 10/18/19 20:15 CMP Sodium 142 mmol/L (136-145) 10/19/19 05:45 Potassium 4.1 mmol/L (3.5-5.1) 10/19/19 05:45 Chloride 107 mmol/L (98-107) 10/19/19 05:45 Carbon Dioxide 29 mmol/L (21-32) 10/19/19 05:45 Anion Gap 6 MMOL/L (8-16) L 10/19/19 05:45 BUN 12.6 mg/dL (7-18) 10/19/19 05:45 Creatinine 0.8 mg/dL (0.55-1.3) 10/19/19 05:45 Random Glucose 84 mg/dL (74-106) 10/19/19 05:45 Calcium 9.0 mg/dL (8.5-10.1) 10/19/19 05:45 Total Bilirubin 0.2 mg/dL (0.2-1) 10/19/19 05:45 AST 11 U/L (15-37) L 10/19/19 05:45 ALT 18 U/L (13-61) 10/19/19 05:45 Alkaline Phosphatase 109 U/L (45-117) 10/19/19 05:45 Total Protein 7.2 g/dl (6.4-8.2) 10/19/19 05:45 Albumin 3.8 g/dl (3.4-5.0) 10/19/19 05:45 CARDIAC ENZYMES Creatine Kinase 138 U/L (26-192) 10/18/19 19:56 Troponin I < 0.02 ng/ml (0.00-0.05) 10/18/19 19:56 Current Medications Generic Name Dose Route Start Last Admin Trade Name Freq PRN Reason Stop Dose Admin Acetaminophen 650 mg 10/19/19 01:23 Tylenol - PO Q6H PRN FEVER Aspirin 81 mg 10/19/19 10:00 10/20/19 09:15 Ecotrin - PO 81 mg DAILY ZACH Administration Enoxaparin Sodium 40 mg 10/19/19 10:00 10/20/19 09:15 Lovenox - SQ 40 mg DAILY ZACH Administration Rosuvastatin Calcium 20 mg 10/19/19 22:00 Crestor - PO HS ZACH Home Medications Medication Instructions Recorded NK [No Known Home Medication] 12/17/17 Carotid doppler: negative MRI: possible cortical infarcts, discussed with radiologists , most likely artifact and possible due to migraine headache and should repeat the mri in a week period. ASSESSMENT AND PLAN: Patient is a 54 year old female with no significant past medical history presented to the ED due to sudden onset severe 10/10 left retro-orbital throbbing pain that started early this morning. #Headache most likely due to neck tenderness, discussed with the patient the use of pillow and MRI result as above and carotid as above -Neurology (Dr. Restrepo) consulted. Once cleared by neuro , we can discharge the patient. #RLL nodule: CXR showed 4mm nodule on RLL, follow up with the pulm as an outpatient and repeat for continued monitoring #Prophylaxis: Lovenox 40mg daily
== END 2019-10-20 13:10 | disposition home or self-care (01) | DRG 54 ==
LOC: JER 17:54 → JERBED 10-19 00:04 → J4W 10-19 10:43
PROVIDERS: ADMIT Internal Medicine; ATTEND Internal Medicine
DX: G43.909 Migraine, unspecified, not intractable, without status migrainosus (principal); I10 Essential (primary) hypertension; R91.1 Solitary pulmonary nodule; H53.8 Other visual disturbances
CPT/HCPCS: 36415; 70450-TC; 70551-TC; 71046-TC-FY; 80053; 80061; 81003; 82550; 83036; 83721; 83735; 84100; 84443; 84484; 85025; 85610; 85651; 85730; 93005; 93010; 93306-TC; 93880-TC; 97116-GP; 97161-GP; 99285-25; J0131

== ENCOUNTER 2019-12-23 11:18 | Emergency (ER) | payer OTHER ==
[2019-12-23 11:34] VITALS: BP 144/76; PULSE 68; TEMP 97.7; BMI 20.9
[2019-12-23] MEDS ORDERED: ACETAMINOPHEN 1000 MG/100 ML VIAL (NON FORMULARY) IVPB ONE (11:41)
[2019-12-23] MEDS ORDERED: ACETAMINOPHEN INJECTION 100 ML IVPB ONE (11:49)
--- NOTE | 2019-12-23 11:55 | PDOC ---
History of Present Illness - General Chief Complaint: Pain Stated Complaint: HEADACHE Time Seen by Provider: 12/23/19 11:27 History Source: Patient Exam Limitations: Language Barrier - History of Present Illness Initial Comments: 12/23/19 11:55 54y F with PMH of headaches presenting to ED with posterior headaches upon waking this AM. Pt has had similar headaches in the past with it starting out posterior and in the mornings when she wakes up. She took an aspirin because the headache was not intense enough for Motrin. She has been taking magnesium daily for headache prevention. Denies changes in vision, numbness/tingling, weakness, dizziness, tinnitus, eye pain, syncope, thunderclap headache, injuries , neck pain, fevers, chills, chest pain, sob. Pain feels similar to prior headaches. Right now 04/24. She has neurology appointment next Wednesday. She was recently admitted 10/2019 for similar headache but with dizziness. 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 She was admitted for CVA, seen by neurology with low suspicion for acute CVA. PMD: Neuro: Lauro PMH: see hpi PSH: Meds; see med rec Allergies: nkda Past History - Past Medical History Allergies/Adverse Reactions: Allergies Allergy/AdvReac Type Severity Reaction Status Date / Time No Known Drug Allergies Allergy Verified 12/23/19 11:30 Home Medications: Ambulatory Orders Magnesium Glycinate [Mag Glycinate] 100 mg PO DAILY #14 tablet 10/20/19 Sumatriptan Succinate [Imitrex -] 50 mg PO PRN PRN #25 tablet 10/20/19 Aspirin 81 mg PO DAILY 12/23/19 Anemia: No Asthma: No Cancer: No Cardiac Disorders: No CVA: No COPD: No CHF: No Dementia: No Diabetes: No GI Disorders: No Disorders: No HTN: Yes Hypercholesterolemia: No Liver Disease: No Seizures: No Thyroid Disease: No - Surgical History Abdominal Surgery: No Appendectomy: No Cardiac Surgery: No Cholecystectomy: Yes Lung Surgery: No Neurologic Surgery: No Orthopedic Surgery: No - Immunization History Immunization Up to Date: Yes - Psycho Social/Smoking Cessation Hx Smoking History: Never smoked Have you smoked in the past 12 months: No Number of Cigarettes Smoked Daily: 0 Cigars Per Day: 0 Hx Alcohol Use: No Drug/Substance Use Hx: No Substance Use Type: None Hx Substance Use Treatment: No Review of Systems - Review of Systems Constitutional: No: Symptoms Reported HEENTM: No: Symptoms Reported Respiratory: No: Symptoms reported Cardiac (ROS): No: Symptoms Reported ABD/GI: No: Symptoms Reported : No: Symptoms Reported Musculoskeletal: No: Symptoms Reported Integumentary: No: Symptoms Reported Neurological: Yes: Headache *Physical Exam - Vital Signs Last Vital Signs Temp Pulse Resp BP Pulse Ox 97.7 F 68 16 144/76 99 12/23/19 11:22 12/23/19 11:22 12/23/19 11:22 12/23/19 11:22 12/23/19 11:22 - Physical Exam General Appearance: Yes: Nourished, Appropriately Dressed. No: Apparent Distress HEENT: positive: EOMI, VIOLA, Normal ENT Inspection Neck: positive: Trachea midline, Supple Respiratory/Chest: positive: Lungs Clear, Normal Breath Sounds Cardiovascular: positive: Regular Rhythm, Regular Rate, S1, S2. negative: Edema , JVD, Murmur Gastrointestinal/Abdominal: positive: Normal Bowel Sounds, Soft. negative: Tender Musculoskeletal: positive: Normal Inspection Extremity: positive: Normal Capillary Refill Integumentary: positive: Normal Color, Dry, Warm Neurologic: positive: i&c tech II-XII NML intact, Fully Oriented, Alert, Normal Mood/ Affect, Normal Response, Motor Strength 5/5, Finger to Nose. negative: Facial Droop, Numbness, Sensory Deficit, Disoriented Medical Decision Making - Medical Decision Making 12/23/19 18:24 54y F presenting to ED with complaint of posterior BERGERON this AM which is now 6/10 after taking ASA. vitals wnl ddx includes tension type bergeron, meningitis, sah, cva, mass/malignancy. pt has had these headaches before, no change in intensity, no thunderclap, not the worse headache of her life. NO neurological complaints. BERGERON better after ASA. no fever, no neck stiffness or meningeal signs on exam. normal neurological exam, negative HINTS, pt ambulatory and ambulated to ED. pt was admitted and seen by neurology for same complaint but had dizziness at that time. pt states bergeron is the same but without dizziness. does not require imaging at this time; low suspicion for bleed or malignant process. will give ofirmev, reassess. pt feeling better, has neurology f/u. safe for dc home. Discharge - Discharge Information Problems reviewed: Yes Clinical Impression/Diagnosis: Headache Qualifiers: Headache type: unspecified Headache chronicity pattern: episodic headache Intractability: not intractable Qualified Code(s): R51 - Headache Condition: Improved Disposition: HOME - Admission No - Follow up/Referral Referrals: Maggie Arrington DO [Primary Care Provider] - Jabier Restrepo MD [Staff Physician] - - Patient Discharge Instructions Patient Printed Discharge Instructions: DI for Headache Additional Instructions: You were seen in the emergency room for headache. Please follow up with your neurologist on Wednesday. You can take ibuprofen/Advil and Tylenol for the headaches. Continue taking your other medications as directed. Come back to the emergency room for worsening headaches, dizziness, weakness, changes in vision or if any new or concerning symptom develops. Thank you - Post Discharge Activity
--- NOTE | 2019-12-23 12:26 | PDOC ---
Documentation entered by Deni Yap SCRIBE, acting as scribe for Neno Escobar MD. Neno Escobar MD: This documentation has been prepared by the Fracisco lorenzo Daniel, SCRIBE, under my direction and personally reviewed by me in its entirety. I confirm that the documentation accurately reflects all work, treatment, procedures, and medical decision making performed by me. Attending Attestation - Resident Resident Name: Naomi Weaver - ED Attending Attestation I have performed the following: I have examined & evaluated the patient, The case was reviewed & discussed with the resident, I agree w/resident's findings & plan, Exceptions are as noted - HPI HPI: 12/23/19 11:37 The patient is a 54 year old female with a past medical history of migraines here today for evaluation of a 6/10 occipital headache that radiates to the front of her head.Pain is similar in character to the patient's previous episodes of headaches without alteration. Patient denies the current symptoms of the worst headache of her life. Patient denies fever/photo/sonophobia - Physicial Exam PE: 12/23/19 12:23 Patient is awake and alert, well-nourished, in no significant distress Normocephalic and atraumatic PERRLA, EOMI, no photophobia Neck is supple, no meningismus CTA RRR no petechial rash Cranial nerves II through XII are grossly intact; motor is 5 of 54; no pronation drift Gait stable - Medical Decision Making 12/23/19 12:24 Patient is a 54-year-old female with history of headaches who presents with headache similar to her previous episodes. I do not suspect subarachnoid hemorrhage nor meningitis nor intracerebral hemorrhage at this time. serial neuro exams are without focal deficits. Patient received IV Tylenol with complete resolution of her will discharge with outpatient follow-up.
== END 2019-12-23 12:40 | disposition home or self-care (01) ==
LOC: JER 11:18
PROC: 3E033NZ Introduction of Analgesics, Hypnotics, Sedatives into Peripheral Vein, Percutaneous Approach (ICD-10-PCS; principal; 2019-12-23)
DX: R51 Headache (principal); I10 Essential (primary) hypertension; Z90.49 Acquired absence of other specified parts of digestive tract
CPT/HCPCS: 96374; 99282-25; J0131

== ENCOUNTER 2021-05-13 21:41 | Inpatient (IN) | payer OTHER ==
[2021-05-14] MEDS ORDERED: SODIUM CHLORIDE 0.9% 500 ML INFUS.BAG IV ONE (00:20)
[2021-05-14] MEDS ORDERED: morphine CARPU-JECT 4 MG/1 ML DISP.SYRIN IVPUSH ONE (00:20)
[2021-05-14] MEDS ORDERED: FAMOTIDINE 20 MG/50 ML IVPB 20 MG/50 ML MG IVPB ONE ×2 (00:20→00:28)
[2021-05-14] MEDS ORDERED: MORPHINE SULFATE 2 MG/ML VIAL ONE ×2 (00:28→03:34)
[2021-05-14 01:06] LABS: BASO % 0.2 % (0-2.0); EOS % 2.5 % (0-4.5); HEMATOCRIT 36.4 % (32.4-45.2); HEMOGLOBIN 12.3 GM/dL (10.7-15.3); LYMPH % 6.5 % (8-40); MCH 30.6 pg (25.7-33.7); MCHC 33.8 g/dl (32.0-36.0); MEAN CELL VOLUME 90.6 fl (80-96); MEAN PLT VOLUME 8.7 fl (7.5-11.1); MONO % 4.5 % (3.8-10.2); NEUT % 86.3 % (42.8-82.8); PLATELET COUNT 249 10^3/uL (134-434); RBC 4.02 M/mm3 (3.60-5.2); RDW 12.8 % (11.6-15.6); WHITE BLOOD COUNT 10.7 K/mm3 (4.0-10.0)
[2021-05-14 01:25] LABS: INR 1.07 (0.83-1.09); PROTHROMBIN TIME (PATIENT) 13.1 SEC (9.7-13.0)
[2021-05-14 01:26] LABS: CHLORIDE 109 mmol/L (98-107); SODIUM 139 mmol/L (136-145)
[2021-05-14 01:27] LABS: ACTIVATED PTT 26.2 SECONDS (25.2-36.5)
[2021-05-14 01:28] LABS: CALCIUM 8.5 mg/dL (8.5-10.1)
[2021-05-14 01:29] LABS: ALBUMIN 3.7 g/dl (3.4-5.0); ANION GAP 9 MMOL/L (8-16); BLOOD UREA NITROGEN 14.8 mg/dL (7-18); CO2 21 mmol/L (21-32); GLUCOSE,RANDOM 101 mg/dL (74-106); LIPASE 380 U/L (73-393)
[2021-05-14 01:32] LABS: CREATININE 0.7 mg/dL (0.55-1.3); SGOT/AST 848 U/L (15-37); SGPT/ALT 383 U/L (13-61)
[2021-05-14 01:33] LABS: BILIRUBIN,TOTAL 0.9 mg/dL (0.2-1)
[2021-05-14 01:34] LABS: TOT PROT 7.2 g/dl (6.4-8.2)
[2021-05-14 01:35] LABS: ALK PHOS 246 U/L (45-117)
[2021-05-14] MEDS ORDERED: morphine CARPU-JECT 2 MG/1 ML DISP.SYRIN IVPUSH ONE (03:07)
[2021-05-14] MEDS ORDERED: ONDANSETRON 4 MG/2 ML VIAL IVPUSH ONE (03:07)
[2021-05-14] MEDS ORDERED: ONDANSETRON 4 MG/2 ML VIAL ONE (03:34)
[2021-05-14 04:51] LABS: EPI CELLS 1 /uL (0-25.1); HYALINE CASTS 0 /uL (0-3.1); URINE APPEARANCE CLEAR; URINE BACTERIA 0 /uL (0-1359); URINE BILIRUBIN NEGATIVE (NEGATIVE); URINE COLOR YELLOW; URINE GLUCOSE (UA) NEGATIVE (NEGATIVE); URINE KETONE NEGATIVE (NEGATIVE); URINE LEUK ESTERASE NEGATIVE (NEGATIVE); URINE NITRITE NEGATIVE (NEGATIVE); URINE PROTEIN NEGATIVE (NEGATIVE); URINE RBC 5 /uL (0-23.9); URINE WBC 1 /uL (0-25.8)
[2021-05-14] MEDS: SODIUM CHLORIDE 1,000 ML IV SCH (07:03)
[2021-05-14 11:14] LABS: BASO % 0.6 % (0-2.0); EOS % 6.9 % (0-4.5); HEMATOCRIT 34.3 % (32.4-45.2); HEMOGLOBIN 11.6 GM/dL (10.7-15.3); LYMPH % 15.6 % (8-40); MCH 30.6 pg (25.7-33.7); MCHC 33.7 g/dl (32.0-36.0); MEAN CELL VOLUME 90.8 fl (80-96); MEAN PLT VOLUME 8.9 fl (7.5-11.1); MONO % 9.5 % (3.8-10.2); NEUT % 67.4 % (42.8-82.8); PLATELET COUNT 233 10^3/uL (134-434); RBC 3.78 M/mm3 (3.60-5.2); RDW 12.9 % (11.6-15.6); WHITE BLOOD COUNT 5.1 K/mm3 (4.0-10.0)
[2021-05-14] MEDS: ENOXAPARIN NA (PORCINE) 40 MG/0.4 ML DISP.SYRIN SQ SCH (11:14)
[2021-05-14 11:44] LABS: ALBUMIN 3.7 g/dl (3.4-5.0); CALCIUM 8.7 mg/dL (8.5-10.1)
[2021-05-14 11:45] LABS: BLOOD UREA NITROGEN 10.8 mg/dL (7-18)
[2021-05-14 11:47] LABS: CREATININE 0.7 mg/dL (0.55-1.3)
[2021-05-14 11:49] LABS: BILIRUBIN,TOTAL 0.7 mg/dL (0.2-1); TOT PROT 7.2 g/dl (6.4-8.2)
[2021-05-14] MEDS ORDERED: ONDANSETRON 4 MG/2 ML VIAL IVPB PRN (12:16)
[2021-05-14] MEDS ORDERED: traMADol HCL 50 MG TABLET PO ONE (23:20)
[2021-05-15 08:01] LABS: BASO % 0.7 % (0-2.0); EOS % 12.4 % (0-4.5); HEMATOCRIT 31.5 % (32.4-45.2); HEMOGLOBIN 10.5 GM/dL (10.7-15.3); LYMPH % 37.2 % (8-40); MCH 30.5 pg (25.7-33.7); MCHC 33.2 g/dl (32.0-36.0); MEAN CELL VOLUME 91.7 fl (80-96); NEUT % 38.7 % (42.8-82.8); PLATELET COUNT 226 10^3/uL (134-434); RBC 3.44 M/mm3 (3.60-5.2); RDW 12.6 % (11.6-15.6); WHITE BLOOD COUNT 3.7 K/mm3 (4.0-10.0)
[2021-05-15 08:19] LABS: CALCIUM 8.2 mg/dL (8.5-10.1)
[2021-05-15 08:20] LABS: BLOOD UREA NITROGEN 9.1 mg/dL (7-18)
[2021-05-15 08:22] LABS: BILIRUBIN,DIRECT 0.1 mg/dL (0.0-0.2)
[2021-05-15 08:23] LABS: CREATININE 0.6 mg/dL (0.55-1.3)
[2021-05-15 08:25] LABS: BILIRUBIN,TOTAL 0.4 mg/dL (0.2-1); TOT PROT 5.9 g/dl (6.4-8.2)
[2021-05-15] MEDS ORDERED: IBUPROFEN 400 MG TABLET (FP) PO ONE ×2 (08:26→19:29)
[2021-05-15 08:27] LABS: PHOSPHOROUS 3.9 mg/dL (2.5-4.9)
[2021-05-15 08:40] LABS: ALBUMIN 2.9 g/dl (3.4-5.0)
[2021-05-15] MEDS: SODIUM CHLORIDE 1,000 ML IV SCH ×3 (09:53→19:56)
[2021-05-15] MEDS: ENOXAPARIN NA (PORCINE) 40 MG/0.4 ML DISP.SYRIN SQ SCH (09:53)
[2021-05-15 15:07] VITALS: BMI 19.3
[2021-05-16] MEDS: SODIUM CHLORIDE 1,000 ML IV SCH ×2 (04:58→07:39)
[2021-05-16 07:14] LABS: BASO % 0.7 % (0-2.0); EOS % 8.4 % (0-4.5); HEMATOCRIT 32.6 % (32.4-45.2); HEMOGLOBIN 11.1 GM/dL (10.7-15.3); LYMPH % 26.9 % (8-40); MCHC 34.1 g/dl (32.0-36.0); MEAN PLT VOLUME 8.5 fl (7.5-11.1); MONO % 9.6 % (3.8-10.2); NEUT % 54.4 % (42.8-82.8); PLATELET COUNT 236 10^3/uL (134-434); RBC 3.58 M/mm3 (3.60-5.2); WHITE BLOOD COUNT 4.9 K/mm3 (4.0-10.0)
[2021-05-16 07:19] LABS: BLOOD UREA NITROGEN 12.5 mg/dL (7-18); CALCIUM 8.1 mg/dL (8.5-10.1); MAGNESIUM 1.9 mg/dL (1.8-2.4)
[2021-05-16 07:20] LABS: ALBUMIN 3.2 g/dl (3.4-5.0)
[2021-05-16 07:22] LABS: CREATININE 0.6 mg/dL (0.55-1.3); PHOSPHOROUS 3.7 mg/dL (2.5-4.9)
[2021-05-16 07:23] LABS: BILIRUBIN,TOTAL 0.3 mg/dL (0.2-1)
[2021-05-16 07:24] LABS: TOT PROT 6.2 g/dl (6.4-8.2)
[2021-05-16] MEDS: ENOXAPARIN NA (PORCINE) 40 MG/0.4 ML DISP.SYRIN SQ SCH (09:12)
[2021-05-16] MEDS ORDERED: PT OWN MED DRAWER 7, Y5N ONE (09:21)
[2021-05-16] MEDS ORDERED: ACETAMINOPHEN/CAFFEINE/BUTALBITAL 1 TAB PO ONE (10:09)
[2021-05-16 14:27] VITALS: BP 109/74; PULSE 71; TEMP 98.1
[2021-05-16 16:08] LABS: HEP B CORE AB, TOT Negative (Negative)
== END 2021-05-16 14:52 | disposition home or self-care (01) | DRG 249 ==
LOC: JER 21:41 → JERBED 05-14 06:11 → J8W 05-14 09:55
PROVIDERS: ADMIT Hospitalist; ATTEND Internal Medicine
DX: A05.9 Bacterial foodborne intoxication, unspecified (principal); R74.01 Elevation of levels of liver transaminase levels; D72.10 Eosinophilia, unspecified; R79.89 Other specified abnormal findings of blood chemistry; R51.9 Headache, unspecified; K52.9 Noninfective gastroenteritis and colitis, unspecified
CPT/HCPCS: 36415; 70450-TC; 71045-TC-FY; 74177-TC; 76705-TC; 80053; 80074; 80076; 80307; 81003; 82550; 82728; 82977; 83516; 83540; 83550; 83605; 83690; 83735; 84100; 84484; 85025; 85610; 85730; 86038; 86140; 86682; 86704; 86706; 86707; 86708; 86709; 86803; 87086; 87340; 87425; 93005; 93010; 97116-GP; 97161-GP; 99285-25; C9803; U0003; U0005

== ENCOUNTER 2023-03-15 16:25 | Emergency (ER) | payer OTHER ==
[2023-03-15 17:07] VITALS: BP 128/58; PULSE 77; RESP 20; TEMP 97.9; BMI 23.1
[2023-03-15] MEDS ORDERED: KETOROLAC TROMETHAMINE 30 MG/1 ML VIAL IM ONE (18:37)
[2023-03-15] MEDS ORDERED: KETOROLAC TROMETHAMINE 30 MG/1 ML VIAL ONE (19:20)
== END 2023-03-15 21:15 | disposition home or self-care (01) ==
LOC: JERFT 16:25
PROC: 3E0233Z Introduction of Anti-inflammatory into Muscle, Percutaneous Approach (ICD-10-PCS; principal; 2023-03-15)
DX: M79.671 Pain in right foot (principal)
CPT/HCPCS: 93971-TC; 99284-25

== ENCOUNTER 2023-11-08 20:49 | Emergency (ER) | payer OTHER ==
[2023-11-08 21:01] VITALS: BP 145/94; PULSE 95; RESP 16; BMI 20.5
[2023-11-08 21:10] VITALS: TEMP 97.6
[2023-11-08] MEDS ORDERED: ACETAMINOPHEN 1000 MG/100 ML BAG IVPB ONE (22:00)
[2023-11-08] MEDS ORDERED: METOCLOPRAMIDE HCL INJECTION 10 MG/2 ML VIAL IVPUSH ONE (22:00)
[2023-11-08] MEDS ORDERED: METOCLOPRAMIDE HCL INJECTION 10 MG/2 ML VIAL ONE (22:12)
[2023-11-08] MEDS ORDERED: ACETAMINOPHEN INJECTION 100 ML IVPB ONE (22:12)
== END 2023-11-08 23:38 | disposition home or self-care (01) ==
LOC: JER 20:49
PROC: 3E033NZ Introduction of Analgesics, Hypnotics, Sedatives into Peripheral Vein, Percutaneous Approach (ICD-10-PCS; principal; 2023-11-08)
PROC: 3E033GC Introduction of Other Therapeutic Substance into Peripheral Vein, Percutaneous Approach (ICD-10-PCS; 2023-11-08)
DX: R51.9 Headache, unspecified (principal); R20.2 Paresthesia of skin; H53.8 Other visual disturbances
CPT/HCPCS: 70450-TC; 82962; 93005; 93010; 99284-25